=== PATIENT | male | born 1950 | race Caucasian/White ===

== ENCOUNTER 2017-03-13 06:29 | Observation (INO) | payer MEDICARE, OTHER ==
[2017-03-13] MEDS ORDERED: SODIUM CHLORIDE 0.9% 1,000 ML IV STA (08:29)
[2017-03-13] MEDS ORDERED: ONDANSETRON 4 MG/2 ML VIAL IVP STA (08:29)
--- NOTE | 2017-03-13 08:42 | ED ---
General Adult HPI - General Chief complaint: Weakness Stated complaint: Nerve pain, back ache, headache Time Seen by Provider: 03/13/17 08:14 Source: patient, RN notes reviewed Mode of arrival: ambulatory Limitations: no limitations - History of Present Illness Initial comments: Patient is a 66-year-old male who presents emergency room today with a chief complaint of having some muscle aches over the last 3 days that is felt in his neck and shoulder and back. He states he believes it is due to stress. He states he's been very stressed out at work. He states he began having a headache 3 days ago as well located on the back. He describes it as a "nauseated" type headache. States feels nauseous and does not have any specific pain. Patient denies any other symptoms. Patient denies any recent fever, chills, shortness of breath, chest pain, back pain, abdominal pain, vomiting, numbness or tingling, dysuria or hematuria, constipation or diarrhea, visual changes, or any other complaints. - Related Data Home Medications Medication Instructions Recorded Confirmed Allopurinol [Zyloprim] 300 mg PO DAILY 05/31/16 03/13/17 Aspirin EC [Ecotrin Low Dose] 324 mg PO DAILY 05/31/16 03/13/17 Losartan Potassium [Cozaar] 100 mg PO DAILY 05/31/16 03/13/17 Previous Rx's Medication Instructions Recorded Nitroglycerin Sl Tabs [Nitrostat] 0.4 mg SUBLINGUAL Q5M PRN #30 tab 06/01/16 Allergies Allergy/AdvReac Type Severity Reaction Status Date / Time No Known Allergies Allergy Verified 03/13/17 08:01 Review of Systems ROS Statement: Those systems with pertinent positive or pertinent negative responses have been documented in the HPI. ROS Other: All systems not noted in ROS Statement are negative. Past Medical History Past Medical History: Hyperlipidemia, Hypertension Additional Past Medical History / Comment(s): GOUT bilateral feet, generalized mild arthritis. History of Any Multi-Drug Resistant Organisms: None Reported Past Surgical History: Joint Replacement, Orthopedic Surgery Additional Past Surgical History / Comment(s): PT STATES A HOLE FIXED IN HIS HEART at [facility] in 2013, R inguinal hernia repair, colonoscopies, bilateral total hip arthroplasties, R knee arthroscopy, R shoulder with pin. Past Anesthesia/Blood Transfusion Reactions: No Reported Reaction Past Psychological History: Anxiety, Depression Smoking Status: Never smoker Past Alcohol Use History: Rare Past Drug Use History: None Reported - Past Family History Father Family Medical History: No Reported History Additional Family Medical History / Comment(s): Father is 91 yrs old. Mother Family Medical History: Myocardial Infarction ([place]) Additional Family Medical History / Comment(s): Mother had a [place] at the age of 91 yrs. She is 91 yrs old. General Exam - General Exam Comments Initial Comments: General: The patient is awake and alert, in no distress, and does not appear acutely ill. Eye: Pupils are equal, round and reactive to light, extra-ocular movements are intact. No nystagmus. There is normal conjunctiva bilaterally. No signs of icterus. Ears, nose, mouth and throat: There are moist mucous membranes and no oral lesions. Neck: The neck is supple, there is no tenderness or JVD. Cardiovascular: There is a regular rate and rhythm. No murmur, rub or gallop is appreciated. Respiratory: Lungs are clear to auscultation, respirations are non-labored, breath sounds are equal. No wheezes, stridor, rales, or rhonchi. Gastrointestinal: Soft, non-distended, non-tender abdomen without masses or organomegaly noted. There is no rebound or guarding present. No CVA tenderness. Bowel sounds are unremarkable. Musculoskeletal: Normal ROM, no tenderness. Strength 5/5. Sensation intact. Pulses equal bilaterally 2+. Neurological: A&O x 3. CN II-XII intact, There are no obvious motor or sensory deficits. Coordination appears grossly intact. Speech is normal. Skin: Skin is warm and dry and no rashes or lesions are noted. Psychiatric: Cooperative, appropriate mood & affect, normal judgment. Limitations: no limitations Course Vital Signs 03/13/17 03/13/17 03/13/17 06:35 09:42 10:00 Temperature 99 F Pulse Rate 58 L 54 L 59 L Respiratory 16 20 20 Rate Blood Pressure 140/86 136/88 137/104 O2 Sat by Pulse 99 99 97 Oximetry EKG Findings - EKG Comments: EKG Findings:: EKG performed at 0936: Shows sinus bradycardia at 55 beats per minute. Evidence for a left axis deviation and a right bundle-branch block. VA interval 192. QRS 110. QT/QTc is 444/424. No acute ST changes. Medical Decision Making - Medical Decision Making Patient reexamined at this time states he does feel better. Nausea improved. Still experiencing some aching to his back. He denies any injury or trauma. Denies any increased physical activity. Patient's CK elevated. 500 emergency room. Patient given a liter bolus. Will be continued on IV fluids. Given nausea medication started feel better. Case discussed with attending physician . Patient will be admitted to the hospital continued on IV fluids. - Lab Data Result diagrams: 03/13/17 08:44 03/13/17 08:44 Lab Results 03/13/17 03/13/17 03/13/17 Range/Units 08:44 08:44 08:44 WBC 5.4 (3.8-10.6) k/uL RBC 4.78 (4.30-5.90) m/uL Hgb 14.5 (13.0-17.5) gm/dL Hct 41.9 (39.0-53.0) % MCV 87.6 (80.0-100.0) fL MCH 30.3 (25.0-35.0) pg MCHC 34.5 (31.0-37.0) g/dL RDW 14.1 (11.5-15.5) % Plt Count 205 (150-450) k/uL Neutrophils % 68 % Lymphocytes % 21 % Monocytes % 6 % Eosinophils % 2 % Basophils % 1 % Neutrophils # 3.7 (1.3-7.7) k/uL Lymphocytes # 1.1 (1.0-4.8) k/uL Monocytes # 0.3 (0-1.0) k/uL Eosinophils # 0.1 (0-0.7) k/uL Basophils # 0.0 (0-0.2) k/uL PT (9.0-12.0) sec INR (<1.2) APTT (22.0-30.0) sec Sodium 141 (137-145) mmol/L Potassium 4.6 (3.5-5.1) mmol/L Chloride 109 H (98-107) mmol/L Carbon Dioxide 21 L (22-30) mmol/L Anion Gap 11 mmol/L BUN 18 (9-20) mg/dL Creatinine 1.01 (0.66-1.25) mg/dL Est GFR (MDRD) Af Amer >60 (>60 ml/min/1.73 sqM) Est GFR (MDRD) Non-Af >60 (>60 ml/min/1.73 sqM) Glucose 102 H (74-99) mg/dL Calcium 8.9 (8.4-10.2) mg/dL Total Bilirubin 0.9 (0.2-1.3) mg/dL AST 34 (17-59) U/L ALT 40 (21-72) U/L Alkaline Phosphatase 68 (38-126) U/L Total Creatine Kinase 569 H (55-170) U/L CK-MB (CK-2) 3.4 H* (0.0-2.4) ng/mL CK-MB (CK-2) Rel Index 0.6 Troponin I <0.012 (0.000-0.034) ng/mL Total Protein 7.0 (6.3-8.2) g/dL Albumin 4.0 (3.5-5.0) g/dL Urine Color Urine Appearance (Clear) Urine pH (5.0-8.0) Ur Specific Ton[place] (1.001-1.035) Urine Protein (Negative) Urine Glucose (UA) (Negative) Urine Ketones (Negative) Urine Blood (Negative) Urine Nitrite (Negative) Urine Bilirubin (Negative) Urine Urobilinogen (<2.0) mg/dL Ur Leukocyte Esterase (Negative) 03/13/17 03/13/17 Range/Units 08:44 08:44 WBC (3.8-10.6) k/uL RBC (4.30-5.90) m/uL Hgb (13.0-17.5) gm/dL Hct (39.0-53.0) % MCV (80.0-100.0) fL MCH (25.0-35.0) pg MCHC (31.0-37.0) g/dL RDW (11.5-15.5) % Plt Count (150-450) k/uL Neutrophils % % Lymphocytes % % Monocytes % % Eosinophils % % Basophils % % Neutrophils # (1.3-7.7) k/uL Lymphocytes # (1.0-4.8) k/uL Monocytes # (0-1.0) k/uL Eosinophils # (0-0.7) k/uL Basophils # (0-0.2) k/uL PT 10.5 (9.0-12.0) sec INR 1.0 (<1.2) APTT 24.8 (22.0-30.0) sec Sodium (137-145) mmol/L Potassium (3.5-5.1) mmol/L Chloride (98-107) mmol/L Carbon Dioxide (22-30) mmol/L Anion Gap mmol/L BUN (9-20) mg/dL Creatinine (0.66-1.25) mg/dL Est GFR (MDRD) Af Amer (>60 ml/min/1.73 sqM) Est GFR (MDRD) Non-Af (>60 ml/min/1.73 sqM) Glucose (74-99) mg/dL Calcium (8.4-10.2) mg/dL Total Bilirubin (0.2-1.3) mg/dL AST (17-59) U/L ALT (21-72) U/L Alkaline Phosphatase (38-126) U/L Total Creatine Kinase (55-170) U/L CK-MB (CK-2) (0.0-2.4) ng/mL CK-MB (CK-2) Rel Index Troponin I (0.000-0.034) ng/mL Total Protein (6.3-8.2) g/dL Albumin (3.5-5.0) g/dL Urine Color Yellow Urine Appearance Clear (Clear) Urine pH 5.5 (5.0-8.0) Ur Specific [place] 1.016 (1.001-1.035) Urine Protein Negative (Negative) Urine Glucose (UA) Negative (Negative) Urine Ketones Negative (Negative) Urine Blood Negative (Negative) Urine Nitrite Negative (Negative) Urine Bilirubin Negative (Negative) Urine Urobilinogen <2.0 (<2.0) mg/dL Ur Leukocyte Esterase Negative (Negative) Disposition Clinical Impression: Rhabdomyolysis Disposition: ADMITTED IP TO THIS HOSP Condition: Stable Referrals: Zuleyka Magdaleno MD [Primary Care Provider] - 1-2 days Time of Disposition: 10:33
[2017-03-13 09:11] LABS: Appearance,Urine Clear (Clear); Basophils % (A) 1 %; Bilirubin,Urine Negative (Negative); CH 30.4; CHCM 34.8; Eosinophils # (A) 0.1 k/uL (0-0.7); Eosinophils % (A) 2 %; Glucose,Urine (UA) Negative (Negative); HCT 41.9 % (39.0-53.0); HDW 2.96; HGB 14.5 gm/dL (13.0-17.5); Ketones,Urine Negative (Negative); Leukocyte Esterase,Urine Negative (Negative); Luc # (Auto) 0.14; Luc % (Auto) 3; Lymphocytes # (A) 1.1 k/uL (1.0-4.8); Lymphocytes % (A) 21 %; MCH 30.3 pg (25.0-35.0); MCHC 34.5 g/dL (31.0-37.0); MCV 87.6 fL (80.0-100.0); Mean Platelet Volume 6.7; Monocytes # (A) 0.3 k/uL (0-1.0); Monocytes % (A) 6 %; Neutrophils # (A) 3.7 k/uL (1.3-7.7); Neutrophils % (A) 68 %; Nitrite,Urine Negative (Negative); PH, Urine 5.5 (5.0-8.0); Protein,Urine Negative (Negative); RBC 4.78 m/uL (4.30-5.90); RDW 14.1 % (11.5-15.5); Specific Gravity,Urine 1.016 (1.001-1.035); UA Billing (MACRO vs. MICRO) CHEM; Urobilinogen,Urine <2.0 mg/dL (<2.0); WBC 5.4 k/uL (3.8-10.6); WBC (Perox) 5.57
[2017-03-13 09:25] LABS: ALT 40 U/L (21-72); AST 34 U/L (17-59); Alkaline Phosphatase 68 U/L (38-126); Anion Gap 11 mmol/L; Blood Urea Nitrogen 18 mg/dL (9-20); Calcium 8.9 mg/dL (8.4-10.2); Carbon Dioxide 21 mmol/L (22-30); Chloride 109 mmol/L (98-107); Glucose 102 mg/dL (74-99); Non-African American GFR(MDRD) >60 (>60 ml/min/1.73 sqM); Potassium 4.6 mmol/L (3.5-5.1); Sodium 141 mmol/L (137-145); Total Bilirubin 0.9 mg/dL (0.2-1.3)
[2017-03-13 09:30] LABS: Partial Thromboplastin Time 24.8 sec (22.0-30.0); Prothrombin Time 10.5 sec (9.0-12.0)
--- NOTE | 2017-03-13 09:40 | CT ---
EXAMINATION TYPE: CT brain wo con DATE OF EXAM: 03/13/2017 COMPARISON: Correlation MRI 08/08/2012 HISTORY: 66-year-old male Headaches TECHNIQUE: Examination was done in axial plane without intravenous contrast. Coronal and sagittal r econstructions performed. CT DLP: 1159 mGycm Automated exposure control for dose reduction was used. FINDINGS: There is no evidence of acute intracranial hemorrhage, acute ischemic changes, mass, mass-effect, or extra-axial fluid collection. There is no effacement of cerebral sulci or basal subarachnoid cister ns. There is no hydrocephalus. There is no midline shift. Berrios-white matter distinction is preserv ed. Megacisterna magna redemonstrated. Also redemonstrated is the encephalomalacia and gliosis within the left frontal lobe and a small area of cortical encephalomalacia laterally on the right near the central sulcus. These were present on 2 013. Mild patchy periventricular white matter hypodensity suggests changes of chronic small vessel ischemi c disease. Paranasal sinuses and mastoid air cells well pneumatized. Orbits and globes are intact. IMPRESSION: Old left frontal lobe infarct, similar as compared to MRI of 08/08/2012. Also, old right-sided cortical infarct near the central sulcus. No acute intracranial abnormality seen at this time.
[2017-03-13 09:41] LABS: Creatine Kinase 569 U/L (55-170)
--- NOTE | 2017-03-13 09:41 | XR ---
EXAMINATION TYPE: XR chest 2V DATE OF EXAM: 03/13/2017 COMPARISON: 05/31/2016 HISTORY: Shortness of breath TECHNIQUE: Frontal and lateral views of the chest are obtained. FINDINGS: Scattered senescent parenchymal changes noted. Hyperinflation compatible with COPD. No evidence for infiltrate. No evidence for atelectasis. Heart size is stable. Mediastinal structures are stable and grossly unremarkable. No evidence for hilar prominence. Degenerative changes dorsal spine. IMPRESSION: 1. No evidence for acute pulmonary disease.
[2017-03-13 09:52] LABS: Troponin I <0.012 ng/mL (0.000-0.034)
[2017-03-13 10:01] LABS: Creatine Kinase MB 3.4 ng/mL (0.0-2.4)
[2017-03-13] MEDS ORDERED: ACETAMINOPHEN TAB 325 MG TAB PO PRN (10:53)
[2017-03-13] MEDS ORDERED: NALOXONE 0.4 MG/ML 1 ML VIAL IV PRN (10:53)
[2017-03-13] MEDS ORDERED: ONDANSETRON 4 MG/2 ML VIAL IVP PRN (10:53)
[2017-03-13] MEDS ORDERED: HYDROmorphone 1 MG/ML 1 ML SYRINGE IV PRN (10:53)
[2017-03-13] MEDS ORDERED: HYDROcodone/APAP 5-325MG 1 EACH TAB PO PRN (10:53)
[2017-03-13] MEDS ORDERED: DIAZEPAM 5 MG TAB PO PRN (10:59)
[2017-03-13] MEDS: SODIUM CHLORIDE 0.9% 1,000 ML IV SCH ×2 (11:29→18:48)
[2017-03-13] MEDS: KETOROLAC 30 MG/ML 1 ML VIAL IVP SCH ×2 (11:29→18:50)
[2017-03-13 12:31] VITALS: RESP 18
[2017-03-13 15:33] LABS: Creatine Kinase 464 U/L (55-170)
[2017-03-13 15:46] LABS: Troponin I <0.012 ng/mL (0.000-0.034)
[2017-03-13 15:47] LABS: Creatine Kinase MB 2.5 ng/mL (0.0-2.4)
[2017-03-13] MEDS ORDERED: NITROGLYCERIN SL TABS 0.4 MG TAB SUBLINGUAL PRN (18:43)
[2017-03-13 21:08] LABS: Creatine Kinase 415 U/L (55-170)
[2017-03-13 21:22] LABS: Creatine Kinase MB 1.8 ng/mL (0.0-2.4); Troponin I <0.012 ng/mL (0.000-0.034)
[2017-03-14] MEDS: KETOROLAC 30 MG/ML 1 ML VIAL IVP SCH ×2 (00:45→06:16)
[2017-03-14 07:05] LABS: Basophils % (A) 1 %; CH 31.1; CHCM 34.6; Eosinophils # (A) 0.2 k/uL (0-0.7); Eosinophils % (A) 3 %; HCT 42.9 % (39.0-53.0); HDW 2.88; HGB 14.1 gm/dL (13.0-17.5); Luc # (Auto) 0.09; Luc % (Auto) 2; Lymphocytes % (A) 18 %; MCH 29.7 pg (25.0-35.0); MCHC 32.9 g/dL (31.0-37.0); MCV 90.2 fL (80.0-100.0); Mean Platelet Volume 7.7; Monocytes # (A) 0.3 k/uL (0-1.0); Monocytes % (A) 5 %; Neutrophils # (A) 3.9 k/uL (1.3-7.7); Neutrophils % (A) 72 %; RBC 4.75 m/uL (4.30-5.90); RDW 15.2 % (11.5-15.5); WBC 5.5 k/uL (3.8-10.6); WBC (Perox) 5.82
[2017-03-14 07:33] LABS: ALT 37 U/L (21-72); AST 33 U/L (17-59); Alkaline Phosphatase 67 U/L (38-126); Anion Gap 8 mmol/L; Blood Urea Nitrogen 17 mg/dL (9-20); Calcium 8.3 mg/dL (8.4-10.2); Carbon Dioxide 24 mmol/L (22-30); Chloride 109 mmol/L (98-107); Glucose 104 mg/dL (74-99); Non-African American GFR(MDRD) >60 (>60 ml/min/1.73 sqM); Potassium 4.8 mmol/L (3.5-5.1); Sodium 141 mmol/L (137-145); Total Bilirubin 0.8 mg/dL (0.2-1.3); Total Protein 6.6 g/dL (6.3-8.2)
[2017-03-14 07:38] VITALS: BP 153/69; PULSE 57; TEMP 98.4
[2017-03-14] MEDS: SODIUM CHLORIDE 0.9% 1,000 ML IV SCH (08:38)
[2017-03-14] MEDS ORDERED: LOSARTAN 50 MG TAB PO SCH (09:00)
[2017-03-14] MEDS ORDERED: ALLOPURINOL 300 MG TAB PO SCH (09:00)
[2017-03-14] MEDS ORDERED: ASPIRIN 325 MG TAB PO SCH (09:00)
--- NOTE | 2017-03-14 10:31 | P.HPIM ---
History of Present Illness H&P Date: 03/14/17 Chief Complaint: Muscle aches and headache This is a 66-year-old male with a known past medical history of CVA, hypertension, hyperlipidemia, gout and generalized anxiety disorder. Patient reports he came into the emergency room with complaints of muscle aches in his back shoulders and legs. Also had been having a headache and just not feeling well for the last few days. Patient reports having a lot of stress at work. 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 He also has been helping out more with some heavy lifting. Patient reports they did not feel that he overexerted himself. He denies any chest pain or shortness of breath. Denies any nausea or vomiting. Did have one episode of diarrhea this morning only. Otherwise stools have been normal. Denies any burning with urination. Denies any cough fever or chills. The muscle pains were more of an achy sensation. They have resolved as well as his headache has read up results. He had a computed tomography scan of the brain completing showing an old left frontal lobe infarct and a right cortical infarct near the central sulcus. Chest x-ray was negative and EKG shows a normal sinus rhythm with an incomplete right bundle branch block. Patient was found to have evidence of rhabdomyolysis CPK level on admission was 569. He has been given IV fluids. And his symptoms have improved. Patient reports that he would like to be restarted on his Zoloft which she had taken in the past. He feels that most of his symptoms are related to his stress and anxiety. Review of Systems Please refer to HPI otherwise unremarkable Past Medical History Past Medical History: Hyperlipidemia, Hypertension, Myocardial Infarction ([place]) Additional Past Medical History / Comment(s): GOUT bilateral feet/knees, generalized mild arthritis. Last Myocardial Infarction Date:: 05/31/16 History of Any Multi-Drug Resistant Organisms: None Reported Past Surgical History: Hernia Repair, Joint Replacement, Orthopedic Surgery Additional Past Surgical History / Comment(s): REPAIR OF HOLE IN HIS HEART at [facility] in 2012, R inguinal hernia repair, colonoscopies, bilateral total hip arthroplasties, R knee arthroscopy, R shoulder with pin. Past Anesthesia/Blood Transfusion Reactions: No Reported Reaction Smoking Status: Never smoker - Past Family History Father Family Medical History: No Reported History, Congestive Heart Failure (CHF) Additional Family Medical History / Comment(s): Father is 92 yrs old. Mother Family Medical History: Myocardial Infarction ([place]) Additional Family Medical History / Comment(s): Mother had a [place] at the age of 91 yrs. She is 92 yrs old. Medications and Allergies Home Medications Medication Instructions Recorded Confirmed Type Allopurinol [Zyloprim] 300 mg PO DAILY 05/31/16 03/13/17 History Aspirin EC [Ecotrin Low Dose] 324 mg PO DAILY 05/31/16 03/13/17 History Losartan Potassium [Cozaar] 100 mg PO DAILY 05/31/16 03/13/17 History Nitroglycerin Sl Tabs [Nitrostat] 0.4 mg SUBLINGUAL Q5M PRN #30 tab 06/01/16 Rx Allergies Allergy/AdvReac Type Severity Reaction Status Date / Time No Known Allergies Allergy Verified 03/13/17 08:01 Physical Exam Vitals: Vital Signs Temp Pulse Pulse Resp BP BP Pulse Ox 03/14/17 08:00 18 03/14/17 07:36 98.4 F 57 L 18 153/69 97 03/14/17 04:00 98.5 F 70 18 147/76 98 03/14/17 03:06 18 03/13/17 23:23 18 03/13/17 20:00 18 03/13/17 19:31 98.8 F 54 L 18 135/81 100 03/13/17 16:00 54 L 18 03/13/17 13:01 54 L 18 03/13/17 12:39 98.7 F 54 L 18 137/78 94 L 03/13/17 12:28 97 F L 62 18 139/82 97 Intake and Output 03/13/17 03/14/17 03/14/17 22:59 06:59 14:59 Intake Total 420 250 Balance 420 250 Intake: IV 0 Invasive Line 1 0 Oral 420 250 Other: Voiding Method Toilet Toilet Toilet # Voids 2 Head normocephalic Neck supple Lungs clear to auscultation bilaterally no wheezing or crackles Heart regular rate and rhythm S1-S2, no rub or gallop Abdomen is soft nontender nondistended positive bowel sounds no hepatosplenomegaly Extremities no edema Neuro alert and orientated to 3 Musculoskeletal no tenderness with palpation of the back shoulders or arms. She has full range of motion of the arms. Has been up and ambulating in the room Results CBC & Chem 7: 03/14/17 06:52 03/14/17 06:52 Labs: Abnormal Lab Results - Last 24 Hours (Table) 03/13/17 03/13/17 03/14/17 Range/Units 14:39 20:32 06:52 Chloride 109 H (98-107) mmol/L Glucose 104 H (74-99) mg/dL Calcium 8.3 L (8.4-10.2) mg/dL Creatine Kinase (55-170) U/L Total Creatine Kinase 464 H 415 H (55-170) U/L CK-MB (CK-2) 2.5 H* (0.0-2.4) ng/mL 03/14/17 Range/Units 06:52 Chloride (98-107) mmol/L Glucose (74-99) mg/dL Calcium (8.4-10.2) mg/dL Creatine Kinase 482 H (55-170) U/L Total Creatine Kinase (55-170) U/L CK-MB (CK-2) (0.0-2.4) ng/mL Thrombosis Risk Factor Assmnt - Choose All That Apply Any of the Below Risk Factors Present?: Yes Each Factor Represents 1 point: Obesity (BMI >25) Other Risk Factors: Yes Each Risk Factor Represents 2 Points: Age 61-74 years Other congenital or acquired thrombophilia - If yes, enter type in comment: No Thrombosis Risk Factor Assessment Total Risk Factor Score: 3 Thrombosis Risk Factor Assessment Level: Moderate Risk Assessment and Plan Plan: 1. Acute rhabdomyolysis likely secondary to increased physical exertion at work. CPK level 569 on admission now 482. Continue with IV fluids. Continue to monitor. 2. Hyperlipidemia: diet controlled, patient is not on any statin 3. Essential hypertension: Resume Cozaar 4. History of CVA 5. Headache now resolved possibly stress-induced. Computed tomography scan of the brain shows no acute changes. Does reveal old strokes 6. History of gout 7. History of generalized anxiety disorder. Patient reports increase in anxiety due to work. He is requesting to be restarted on Zoloft GI prophylaxis Pepcid and DVT prophylaxis subcu heparin Time with Patient: Greater than 30 (Greater than 50% of the total time spent in counseling and coordination of care.I performed an examination of the patient and discussed their management with the physician Chief Solution Architect. I have reviewed the Physician Chief Solution Architect's notes and agree with the documented findings and plan of care)
--- NOTE | 2017-03-14 11:57 | P.DS ---
Providers Date of admission: 03/13/17 10:47 Expected date of discharge: 03/14/17 Attending physician: Zuleyka Magdaleno Primary care physician: Zuleyka Magdaleno [facility] Course: Discharge diagnosis 1. Acute rhabdomyolysis likely secondary to increased physical exertion at work. CPK level 569 on admission now 482. Continue with IV fluids. Continue to monitor. 2. Hyperlipidemia: diet controlled, patient is not on any statin 3. Essential hypertension: Resume Cozaar 4. History of CVA 5. Headache now resolved possibly stress-induced. Computed tomography scan of the brain shows no acute changes. Does reveal old strokes 6. History of gout 7. History of generalized anxiety disorder. Patient reports increase in anxiety due to work. He is requesting to be restarted on Zoloft Hospital course This is a 66-year-old male with a known past medical history of CVA, hypertension, hyperlipidemia, gout and generalized anxiety disorder. Patient reports he came into the emergency room with complaints of muscle aches in his back shoulders and legs. Also had been having a headache and just not feeling well for the last few days. Patient reports having a lot of stress at work. 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 He also has been helping out more with some heavy lifting. Patient reports they did not feel that he overexerted himself. He denies any chest pain or shortness of breath. Denies any nausea or vomiting. Did have one episode of diarrhea this morning only. Otherwise stools have been normal. Denies any burning with urination. Denies any cough fever or chills. The muscle pains were more of an achy sensation. They have resolved as well as his headache has read up results. He had a computed tomography scan of the brain completing showing an old left frontal lobe infarct and a right cortical infarct near the central sulcus. Chest x-ray was negative and EKG shows a normal sinus rhythm with an incomplete right bundle branch block. Patient was found to have evidence of rhabdomyolysis CPK level on admission was 569. He has been given IV fluids. And his symptoms have improved. Patient reports that he would like to be restarted on his Zoloft which she had taken in the past. He feels that most of his symptoms are related to his stress and anxiety. Patient had evidence of an acute rhabdomyolysis possibly related to the increase work activity. However patient reports that it was not that strenuous. CPK level on discharge is 482. Will have patient follow up with Dr. Magdaleno in 1 week. Also will restart patient on his Zoloft at 50 mg daily for his anxiety disorder. Patient may need to be seen by a bandsaw operator outpatient setting due to the elevated CPK levels. I performed an examination of the patient and discussed their management with the physician Fur Stylist. I have reviewed the Physician Fur Stylist's notes and agree with the documented findings and plan of care Patient Condition at Discharge: Stable Plan - Discharge Summary New Discharge Prescriptions: New Sertraline [Zoloft] 50 mg PO DAILY #30 tab Continue Losartan Potassium [Cozaar] 100 mg PO DAILY Aspirin EC [Ecotrin Low Dose] 324 mg PO DAILY Allopurinol [Zyloprim] 300 mg PO DAILY Nitroglycerin Sl Tabs [Nitrostat] 0.4 mg SUBLINGUAL Q5M PRN #30 tab PRN Reason: Chest Pain Discharge Medication List Allopurinol [Zyloprim] 300 mg PO DAILY 05/31/16 [History] Aspirin EC [Ecotrin Low Dose] 324 mg PO DAILY 05/31/16 [History] Losartan Potassium [Cozaar] 100 mg PO DAILY 05/31/16 [History] Nitroglycerin Sl Tabs [Nitrostat] 0.4 mg SUBLINGUAL Q5M PRN #30 tab 06/01/16 [Rx ] Sertraline [Zoloft] 50 mg PO DAILY #30 tab 03/14/17 [Rx] Follow up Appointment(s)/Referral(s): Zuleyka Magdaleno MD [Primary Care Provider] - 1 Week Activity/Diet/Wound Care/Special Instructions: Diet: low cholesterol Activity: as tolerated Discharge Disposition: HOME SELF-CARE
[2017-03-14] MEDS ORDERED: HEPARIN SODIUM,PORCINE 5,000 UNIT/ML 1 ML VIAL SQ SCH (21:00)
[2017-03-15] MEDS ORDERED: FAMOTIDINE 20 MG TAB PO SCH (09:00)
== END 2017-03-14 12:38 | disposition home or self-care (01) ==
LOC: EC 06:29 → 3OBS 10:47
PROVIDERS: ADMIT Internal Medicine; ATTEND Internal Medicine
DX: M62.82 Rhabdomyolysis (principal); E78.5 Hyperlipidemia, unspecified; I10 Essential (primary) hypertension; F41.1 Generalized anxiety disorder; Z86.73 Personal history of transient ischemic attack (TIA), and cerebral infarction without residual deficits; M10.9 Gout, unspecified; R51 Headache; R19.7 Diarrhea, unspecified; R74.8 Abnormal levels of other serum enzymes; Z79.82 Long term (current) use of aspirin; Z79.899 Other long term (current) drug therapy; M19.90 Unspecified osteoarthritis, unspecified site; Z82.49 Family history of ischemic heart disease and other diseases of the circulatory system; E66.9 Obesity, unspecified; Z68.31 Body mass index [BMI] 31.0-31.9, adult
CPT/HCPCS: 99285; 96374; 96361 ×2; 96375 ×2; 96376; 36415; 93005; 80053 ×2; 82550 ×2; 82553 ×2; 84484; 85025 ×2; 85610; 85730; 81003; 71020; 70450; G0378 ×2; J2405; J1885

== ENCOUNTER 2017-05-17 10:38 | Day surgery (SDC) | payer MEDICARE, OTHER ==
[2017-05-16 08:47] VITALS: BMI 30.2
[~2017-05-17 10:38] MED LIST: ALPRAZolam 0.25 MG TAB PO PRN; ALPRAZolam 0.5 MG TAB PO PRN; ASPIRIN 325 MG TAB PO STA; ATORVASTATIN 80 MG TAB PO STA; NITROGLYCERIN SL TABS 0.4 MG TAB SUBLINGUAL PRN; SODIUM CHLORIDE 0.9% 1,000 ML in EMPTY BAG 1 BAG IV ONE
[2017-05-17 11:15] LABS: Basophils # (A) 0.1 k/uL (0-0.2); Basophils % (A) 1 %; CH 30.8; CHCM 35.2; Eosinophils # (A) 0.3 k/uL (0-0.7); Eosinophils % (A) 7 %; HCT 40.9 % (39.0-53.0); HDW 3.22; HGB 14.1 gm/dL (13.0-17.5); Luc # (Auto) 0.16; Luc % (Auto) 4; Lymphocytes # (A) 1.2 k/uL (1.0-4.8); Lymphocytes % (A) 26 %; MCH 30.2 pg (25.0-35.0); MCHC 34.4 g/dL (31.0-37.0); MCV 87.8 fL (80.0-100.0); Mean Platelet Volume 6.6; Monocytes # (A) 0.3 k/uL (0-1.0); Monocytes % (A) 6 %; Neutrophils # (A) 2.7 k/uL (1.3-7.7); Neutrophils % (A) 56 %; RBC 4.66 m/uL (4.30-5.90); RDW 14.3 % (11.5-15.5); WBC 4.7 k/uL (3.8-10.6); WBC (Perox) 4.52
[2017-05-17 11:27] LABS: Anion Gap 10 mmol/L; Blood Urea Nitrogen 16 mg/dL (9-20); Carbon Dioxide 23 mmol/L (22-30); Chloride 107 mmol/L (98-107); Glucose 97 mg/dL (74-99); Non-African American GFR(MDRD) >60 (>60 ml/min/1.73 sqM); Potassium 4.5 mmol/L (3.5-5.1); Sodium 140 mmol/L (137-145)
[2017-05-17] MEDS ORDERED: LIDOCAINE 2% INJ 20 MG/ML (20 ML MDV) ONE (12:18)
[2017-05-17] MEDS ORDERED: MIDAZOLAM 2 MG/2 ML VIAL ONE ×2 (12:18→13:04)
[2017-05-17] MEDS ORDERED: HEPARIN SODIUM 1,000 UN/ML (10ML VL) ONE (12:18)
[2017-05-17] MEDS ORDERED: VERAPAMIL 2.5 MG/ML 2 ML AMP ONE (12:18)
[2017-05-17] MEDS ORDERED: MIDAZOLAM 2 MG/2 ML VIAL IVP ONE (12:41)
[2017-05-17] MEDS ORDERED: LIDOCAINE 2% INJ 20 MG/ML SQ ONE (12:43)
[2017-05-17] MEDS: VERAPAMIL SYRINGE (5 MG/10 ML) INTRAARTER ONE ×2 (12:44→13:35)
[2017-05-17] MEDS ORDERED: HEPARIN SODIUM 1,000 UN/ML (10ML VL) IV ONE (12:45)
[2017-05-17] MEDS ORDERED: MIDAZOLAM 2 MG/2 ML VIAL IV ONE (13:06)
[2017-05-17] MEDS ORDERED: BIVALIRUDIN BOLUS 250 MG/50 ML IV ONE (13:08)
[2017-05-17] MEDS ORDERED: BIVALIRUDIN 250 MG in SODIUM CHLORIDE 0.9% 40 ML IV ONE (13:08)
[2017-05-17] MEDS ORDERED: NITROGLYCERIN 1000MCG/10ML SYRINGE INTRACORON ONE (13:31)
[2017-05-17] MEDS ORDERED: PRASUGREL 10 MG TAB ONE (13:33)
[2017-05-17] MEDS ORDERED: IOHEXOL 350 MG/ML 125ML BOTTLE INJ ONE (13:37)
[2017-05-17] MEDS ORDERED: PRASUGREL 10 MG TAB PO ONE (13:37)
[2017-05-17] MEDS ORDERED: NITROGLYCERIN SL TABS 0.4 MG TAB SUBLINGUAL PRN ×2 (13:42→13:43)
[2017-05-17] MEDS ORDERED: ATROPINE SULFATE 0.1 MG/ML 10ML SYRINGE IV PRN (13:43)
[2017-05-17] MEDS ORDERED: RX INFO: IV CONTRAST WAS GIVEN 1 EACH MISC MISCELLANE PRN (13:43)
[2017-05-17] MEDS ORDERED: MAG HYDROX/AL HYDROX/SIMETH 30 ML CUP PO PRN (13:43)
[2017-05-17] MEDS ORDERED: ZOLPIDEM 5 MG TAB PO PRN (13:43)
[2017-05-17] MEDS ORDERED: SODIUM CHLORIDE 0.9% 1,000 ML IV SCH (13:45)
[2017-05-17] MEDS ORDERED: INFLUENZA VACCINE (6 MOS+) 60 MCG/0.5 ML SYRINGE IM ONE (14:34)
--- NOTE | 2017-05-17 14:47 | LTR ---
May 17, [address] Bowling: Mr. Michael Crowe was experiencing intermittent episodes of chest discomfort quite concerning for angina. He underwent a heart catheterization and was found to have severe disease involving the mid LAD where he underwent successful stenting of the LAD with good angiographic results and without any complication. I want to thank you for allowing me to participate in his care and please do not hesitate to call if you have any question or concern. MMODL / IJN: [id number] /
--- NOTE | 2017-05-17 14:59 | CC ---
CARDIAC CATHETERIZATION REPORT DATE OF SERVICE: May 17, 2017. Please see this based. PERFORMING PHYSICIAN: Fred Whitten MD, soaker. PROCEDURE PERFORMED: 1. Selective right and left coronary angiogram. 2. Successful stenting of the mid LAD using 2.75 x 12 mm Promus Premier drug-eluting stent with good angiographic results. INDICATION: This is a pleasant 66-year-old gentleman who was experiencing intermittent episodes of chest discomfort quite concerning for angina. He was brought today to undergo a heart catheterization. APPROACH: Right radial artery. COMPLICATION: None. LEVEL OF SEDATION: Moderate with sedation length of 58 minutes. PROCEDURE DESCRIPTION: After obtaining informed consent, the patient was brought to cardiac cardiac cath lab manager. The right radial artery was cannulated using micropuncture technique and a micropuncture wire passed easily then I placed a 6-Kenyan sheath in the right radial artery. Subsequently I did selective right and left coronary angiogram using JR4 and JL3.5 catheters. After that, I did decide to intervene on the RCA. Please see a separate paragraph for that. SELECTIVE CORONARY ANGIOGRAM: 1. The right coronary artery is a large caliber vessel and it is a dominant vessel. RCA appeared to have mild disease only. It bifurcates distally into PDA and PLV branches. Both are angiographically normal. The RCA in the midportion gives rise into acute marginal branch. 2. The left main is angiographically normal. It bifurcates into the left circumflex and left anterior descending artery. 3. The left circumflex is a large caliber vessel and it is a nondominant vessel. The proximal circ is angiographically normal. It gives rise into a small acute marginal branch. The mid left circumflex is normal. The left circumflex distally is angiographically normal as well. 4. The left anterior descending artery: The proximal LAD is extremely tortuous and making a loop of about 360 degrees. It has mild disease only. The mid LAD by the bifurcation of a large diagonal branch appeared to have a tight lesion in the range of 70% was most seen on the STEELE caudal view. The LAD distally appeared to be tortuous, but angiographically normal. PCI: PCI of the LAD anticoagulation was initiated using Angiomax. Subsequently I took a 3.5 guide in the left main was engaged. I did wire the LAD using 2 whisper wires. Subsequently I did PTCA ballooning using two 5 x 12 mm balloon and subsequently I deployed a 275 x 15 x 12 mm Promus Premier drug-eluting stent where the stent was positioned under fluoroscopy guidance and deployed under 16 atmospheres for 20 seconds. The following angiogram showed good angiographic results with a residual stenosis of about 10-20%. The procedure was completed without any complication. CONCLUSION: 1. Severe disease involving the mid LAD by the bifurcation of a large diagonal branch. 2. Successful stenting of the mid LAD using 2.75 x 12 mm Promus Premier drug-eluting stent with good angiographic results. POSTPROCEDURE MANAGEMENT: 1. Dual anti-platelet therapy. 2. Risk factor modifications. 3. Follow up with the patient. MMODL / IJN: [id number] /
[2017-05-17] MEDS ORDERED: LOSARTAN 50 MG TAB PO SCH (21:00)
[2017-05-17] MEDS ORDERED: ALLOPURINOL 300 MG TAB PO SCH (21:00)
[2017-05-18 06:30] LABS: Basophils % (A) 1 %; CH 30.4; CHCM 34.6; Eosinophils # (A) 0.3 k/uL (0-0.7); Eosinophils % (A) 6 %; HDW 3.18; HGB 13.4 gm/dL (13.0-17.5); Luc # (Auto) 0.13; Luc % (Auto) 2; Lymphocytes # (A) 1.2 k/uL (1.0-4.8); Lymphocytes % (A) 24 %; MCH 29.5 pg (25.0-35.0); MCHC 33.4 g/dL (31.0-37.0); MCV 88.4 fL (80.0-100.0); Mean Platelet Volume 6.6; Monocytes # (A) 0.4 k/uL (0-1.0); Monocytes % (A) 8 %; Neutrophils # (A) 3.1 k/uL (1.3-7.7); Neutrophils % (A) 60 %; RBC 4.53 m/uL (4.30-5.90); RDW 14.1 % (11.5-15.5); WBC 5.1 k/uL (3.8-10.6); WBC (Perox) 5.14
[2017-05-18 07:37] LABS: Anion Gap 7 mmol/L; Blood Urea Nitrogen 18 mg/dL (9-20); Calcium 8.6 mg/dL (8.4-10.2); Carbon Dioxide 25 mmol/L (22-30); Chloride 104 mmol/L (98-107); Glucose 95 mg/dL (74-99); Non-African American GFR(MDRD) >60 (>60 ml/min/1.73 sqM); Potassium 4.3 mmol/L (3.5-5.1); Sodium 136 mmol/L (137-145)
[2017-05-18] MEDS ORDERED: ANTIDEPRESSANT PO SCH (09:00)
[2017-05-18] MEDS ORDERED: ASPIRIN 81 MG PO SCH (09:00)
[2017-05-18] MEDS ORDERED: FAMOTIDINE 20 MG TAB PO SCH (09:00)
[2017-05-18] MEDS ORDERED: PNEUMOCOCCAL VACC-PNEUMOVAX 23 25 MCG/0.5 ML VIAL IM ONE (09:00)
--- NOTE | 2017-05-18 09:45 | DS ---
DISCHARGE SUMMARY DATE OF ADMISSION: 05/17/2017 DISCHARGE DATE: May 18, 2017 BRIEF HISTORY: This is a pleasant 66-year-old gentleman who was experiencing intermittent episodes of chest discomfort concerning for angina. He underwent a heart catheterization and was found to have severe disease involving the mid LAD. He underwent successful stenting of the LAD with good angiographic results and without any complication. On follow up with him today, he is doing good and he is asymptomatic. He is going to be discharged home on dual anti-platelet therapy along with statin and I will follow up with him in the office in a week. JANETTE / POPPY: [id number] /
[2017-05-18] MEDS ORDERED: PRASUGREL 10 MG TAB PO SCH (12:00)
[2017-05-18 12:28] VITALS: BP 130/85; PULSE 61; RESP 16; TEMP 97.2
== END 2017-05-18 13:06 | disposition home or self-care (01) ==
LOC: CATHCVL 10:38 → 6SEL 13:39 → CATHCVL 05-18 13:06
PROVIDERS: ATTEND Internal Medicine Interventional Cardiology
DX: I25.110 Atherosclerotic heart disease of native coronary artery with unstable angina pectoris (principal); I45.10 Unspecified right bundle-branch block; E78.00 Pure hypercholesterolemia, unspecified; I10 Essential (primary) hypertension; Z86.79 Personal history of other diseases of the circulatory system; Z79.82 Long term (current) use of aspirin; Z79.899 Other long term (current) drug therapy
CPT/HCPCS: 93454; 85347; 80048 ×2; 85025 ×2; 90732; 90686; C9600; C1769 ×2; C1887; C1725; C1894; C1874; G0008; G0009; J2001; J2250; J1644; J0583; Q9967

== ENCOUNTER 2019-05-08 10:24 | Day surgery (SDC) | payer MEDICARE, OTHER ==
[2019-05-07 10:15] VITALS: BMI 29.5
[2019-05-08 10:53] VITALS: TEMP 97.6
[2019-05-08] MEDS ORDERED: MIDAZOLAM 2 MG/2 ML VIAL IVP ONE (11:12)
[2019-05-08] MEDS ORDERED: LIDOCAINE 1% INJ 10MG/ML (20 ML MDV) SQ ONE (11:15)
[2019-05-08] MEDS: VERAPAMIL SYRINGE (5 MG/10 ML) INTRAARTER ONE ×2 (11:17→11:24)
[2019-05-08] MEDS ORDERED: HEPARIN SODIUM 1,000 UN/ML (10ML VL) IV ONE (11:19)
[2019-05-08 11:29] LABS: Calcium 8.8 mg/dL (8.4-10.2)
[2019-05-08] MEDS ORDERED: RX INFO: IV CONTRAST WAS GIVEN 1 EACH MISC MISCELLANE PRN (11:30)
[2019-05-08] MEDS ORDERED: SODIUM CHLORIDE 0.9% 1,000 ML IV SCH (11:30)
[2019-05-08] MEDS ORDERED: IOPAMIDOL-370 125ML BTL INJ ONE (11:32)
[2019-05-08 11:35] LABS: Potassium 5.7 mmol/L (3.5-5.1)
--- NOTE | 2019-05-08 11:35 | P.PCN ---
Date of Procedure: 05/08/19 Operative Findings: CARDIAC CATHETERIZATION PERFORMING PHYSICIAN: Fred Whitten MD, RPVI PROCEDURE PERFORMED: 1. Selective right and left coronary angiogram 2. Left heart catheterization INDICATION: This is a pleasant 68-year-old gentleman with history of coronary artery disease and prior stenting of the LAD in 2017 as well as hypertension and dyslipidemia continues not feeling well. He was experiencing intermittent episodes of discomfort in the chest concerning for severe coronary artery disease. Because of the continuous symptoms a heart catheterization was advised. COMPLICATION: None APPROACH: Right radial artery LEVEL OF SEDATION: Moderate with sedation duration of 14 minutes PROCEDURE DESCRIPTION: After obtaining an informed consent, the patient was brought to cardiac carpenter/labor. Local anesthesia was performed using lidocaine subcutaneously. The right radial artery was cannulated using Seldinger technique, the guidewire passed easily, following that we advanced a 5-Greenlandic sheath dilator assembly, the wire and dilator were removed and sheath was flushed. Following that, 2 mg of verapamil along with [id number] unit heparin were given. Selective right and left coronary angiogram using a 6-Greenlandic JR4 and JL 3.5 catheters. Following that we did left heart catheterization using 6-Greenlandic pigtail catheter. The procedure was completed there was no complication. SELECTIVE CORONARY ANGIOGRAM: The right coronary artery: Is a large caliber vessel. Its aneurysmal. It does have mild occlusive disease only. Left main: Is a long left main with mild disease only. The left circumflex: Large caliber vessel and nondominant vessel. It is tortuous. Appeared to have mild disease only. The left anterior descending artery: Is extremely tortuous in the proximal portion was mild disease only. In the midportion by the bifurcation of a large diagonal branch is a stented with mild disease only. Distally appears to be angiographically normal. HEMODYNAMICS: The LVEDP was 12 mmHg without significant gradient across aortic valve CONCLUSION: 1. Aneurysmal right coronary system 2. Tortuous left coronary system 3. Patent stent in the mid LAD POSTPROCEDURE MANAGEMENT: Medical treatment Follow-up with the patient
[2019-05-08 14:10] VITALS: BP 125/71; PULSE 48; RESP 16
== END 2019-05-08 16:10 | disposition home or self-care (01) ==
LOC: CATHCVL 10:24
PROVIDERS: ATTEND Internal Medicine Interventional Cardiology
DX: I25.110 Atherosclerotic heart disease of native coronary artery with unstable angina pectoris (principal); I25.41 Coronary artery aneurysm; I77.1 Stricture of artery; I10 Essential (primary) hypertension; E78.5 Hyperlipidemia, unspecified; Q21.1 Atrial septal defect; Z95.5 Presence of coronary angioplasty implant and graft; Z79.82 Long term (current) use of aspirin; Z79.899 Other long term (current) drug therapy
CPT/HCPCS: 93458; 80048; C1769; C1894; J2250; J2001; J1644; Q9967

== ENCOUNTER 2020-01-22 12:58 | Observation (INO) | payer MEDICARE, OTHER ==
[2020-01-22] MEDS ORDERED: ASPIRIN 81 MG PO STA (13:56)
[2020-01-22] MEDS ORDERED: NITROGLYCERIN OINT 1 INCH/GM PACKET TOPICAL STA (13:56)
--- NOTE | 2020-01-22 13:58 | ED ---
General Adult HPI - General Chief complaint: Chest Pain Stated complaint: chest pain Time Seen by Provider: 01/22/20 13:15 Source: patient, RN notes reviewed Mode of arrival: wheelchair Limitations: no limitations - History of Present Illness Initial comments: Patient is a pleasant 69-year-old male presenting to the emergency Department with complaint of chest discomfort. Onset of symptoms was yesterday. Patient states around for 5:00 he had chest discomfort lasting for a couple of hours. Discomfort has resolved. Patient has no chest discomfort at this time. Patient does not feel that well today. Patient feels fatigued and achy. Patient did have nausea and did vomit this morning. No cough or dyspnea. No diaphoresis. - Related Data Home Medications Medication Instructions Recorded Confirmed Aspirin EC [Ecotrin Low Dose] 162 mg PO DAILY 05/31/16 01/22/20 Losartan Potassium [Cozaar] 100 mg PO DAILY 05/31/16 01/22/20 allopurinoL [Zyloprim] 300 mg PO DAILY 05/31/16 01/22/20 Famotidine 40 mg PO DAILY 05/17/17 01/22/20 Escitalopram [Lexapro] 10 mg PO DAILY 01/22/20 01/22/20 Multivitamins, Thera [Multivitamin 1 tab PO DAILY 01/22/20 01/22/20 (formulary)] Previous Rx's Medication Instructions Recorded Nitroglycerin Sl Tabs [Nitrostat] 0.4 mg SUBLINGUAL Q5M PRN #30 tab 06/01/16 Atorvastatin Calcium [Lipitor] 80 mg PO DAILY #90 tablet 05/18/17 Allergies Allergy/AdvReac Type Severity Reaction Status Date / Time No Known Allergies Allergy Verified 01/22/20 14:51 Review of Systems ROS Statement: Those systems with pertinent positive or pertinent negative responses have been documented in the HPI. ROS Other: All systems not noted in ROS Statement are negative. Constitutional: Denies: fever Eyes: Denies: eye pain ENT: Denies: ear pain Respiratory: Denies: cough, dyspnea Cardiovascular: Reports: chest pain Endocrine: Reports: fatigue Gastrointestinal: Reports: nausea, vomiting. Denies: abdominal pain Genitourinary: Denies: dysuria Musculoskeletal: Denies: back pain Skin: Denies: rash Neurological: Denies: weakness Past Medical History Past Medical History: Hyperlipidemia, Hypertension, Myocardial Infarction (MT) Additional Past Medical History / Comment(s): GOUT bilateral feet/knees, gener alized mild arthritis. Last Myocardial Infarction Date:: 05/31/16 History of Any Multi-Drug Resistant Organisms: None Reported Past Surgical History: Heart Catheterization With Stent, Hernia Repair, Joint Replacement, Orthopedic Surgery Additional Past Surgical History / Comment(s): REPAIR OF HOLE IN HIS HEART at [facility] in 2012, R inguinal hernia repair, colonoscopies, bilateral total hip arthroplasties, R knee arthroscopy, R shoulder with pin. Past Anesthesia/Blood Transfusion Reactions: No Reported Reaction Date of Last Stent Placement:: 2016 Past Psychological History: Anxiety, Depression Smoking Status: Never smoker Past Alcohol Use History: Rare Past Drug Use History: None Reported - Past Family History Father Family Medical History: Congestive Heart Failure (CHF) Additional Family Medical History / Comment(s): Father is 94 yrs old. Mother Family Medical History: Myocardial Infarction (MT) Additional Family Medical History / Comment(s): Mother had a MT at the age of 91 yrs. She is 94 yrs old. General Exam Limitations: no limitations General appearance: alert, in no apparent distress Head exam: Present: atraumatic Eye exam: Present: normal appearance Neck exam: Present: normal inspection Respiratory exam: Present: normal lung sounds bilaterally. Absent: chest wall tenderness Cardiovascular Exam: Present: regular rate, normal rhythm, normal heart sounds Expanded Peripheral pulses: 2+: Radial (R), Radial (L), Posterior Tibialis (R), Posterior Tibialis (L) GI/Abdominal exam: Present: soft. Absent: tenderness Extremities exam: Present: normal inspection. Absent: pedal edema, calf tenderness Neurological exam: Present: alert Psychiatric exam: Present: normal affect, normal mood Skin exam: Present: normal color Course Vital Signs 01/22/20 01/22/20 13:06 14:06 Temperature 98.4 F Pulse Rate 65 84 Respiratory 16 20 Rate Blood Pressure 150/97 170/112 O2 Sat by Pulse 96 96 Oximetry EKG Findings - EKG Comments: EKG Findings:: Normal sinus rhythm 81. AR 178. QRS 118. QT 388. QTC 450. Left axis. Incomplete right bundle-branch block. Left anterior fascicular block. Medical Decision Making - Medical Decision Making Patient reevaluated and resting comfortably in bed. Patient updated on results and plan. Patient also updated on need for computed tomography scan and is in agreement. Case also discussed in detail with Dr. Stoll, covering for Dr. Palomo, who admits covering for Dr. Rodriguez. She is agreeable with admission and aware of pending CT. - Lab Data Result diagrams: 01/22/20 14:01 01/22/20 14:01 Lab Results 01/22/20 01/22/20 01/22/20 Range/Units 14:01 14:01 14:01 WBC 5.0 (3.8-10.6) k/uL RBC 4.80 (4.30-5.90) m/uL Hgb 14.3 (13.0-17.5) gm/dL Hct 43.2 (39.0-53.0) % MCV 90.0 (80.0-100.0) fL MCH 29.8 (25.0-35.0) pg MCHC 33.1 (31.0-37.0) g/dL RDW 13.9 (11.5-15.5) % Plt Count 184 (150-450) k/uL Neutrophils % 69 % Lymphocytes % 21 % Monocytes % 6 % Eosinophils % 2 % Basophils % 1 % Neutrophils # 3.4 (1.3-7.7) k/uL Lymphocytes # 1.0 (1.0-4.8) k/uL Monocytes # 0.3 (0-1.0) k/uL Eosinophils # 0.1 (0-0.7) k/uL Basophils # 0.0 (0-0.2) k/uL PT 10.0 (9.0-12.0) sec INR 1.0 (<1.2) APTT 24.6 (22.0-30.0) sec D-Dimer 0.61 H (<0.60) mg/L FEU Sodium 140 (137-145) mmol/L Potassium 4.3 (3.5-5.1) mmol/L Chloride 107 (98-107) mmol/L Carbon Dioxide 25 (22-30) mmol/L Anion Gap 8 mmol/L BUN 13 (9-20) mg/dL Creatinine 1.05 (0.66-1.25) mg/dL Est GFR (CKD-EPI)AfAm 84 (>60 ml/min/1.73 sqM) Est GFR (CKD-EPI)NonAf 73 (>60 ml/min/1.73 sqM) Glucose 109 H (74-99) mg/dL Calcium 9.0 (8.4-10.2) mg/dL Magnesium 2.0 (1.6-2.3) mg/dL Total Bilirubin 0.9 (0.2-1.3) mg/dL AST 32 (17-59) U/L ALT 24 (4-49) U/L Alkaline Phosphatase 70 (38-126) U/L Troponin I (0.000-0.034) ng/mL Total Protein 6.9 (6.3-8.2) g/dL Albumin 4.0 (3.5-5.0) g/dL 01/22/20 Range/Units 14:01 WBC (3.8-10.6) k/uL RBC (4.30-5.90) m/uL Hgb (13.0-17.5) gm/dL Hct (39.0-53.0) % MCV (80.0-100.0) fL MCH (25.0-35.0) pg MCHC (31.0-37.0) g/dL RDW (11.5-15.5) % Plt Count (150-450) k/uL Neutrophils % % Lymphocytes % % Monocytes % % Eosinophils % % Basophils % % Neutrophils # (1.3-7.7) k/uL Lymphocytes # (1.0-4.8) k/uL Monocytes # (0-1.0) k/uL Eosinophils # (0-0.7) k/uL Basophils # (0-0.2) k/uL PT (9.0-12.0) sec INR (<1.2) APTT (22.0-30.0) sec D-Dimer (<0.60) mg/L FEU Sodium (137-145) mmol/L Potassium (3.5-5.1) mmol/L Chloride (98-107) mmol/L Carbon Dioxide (22-30) mmol/L Anion Gap mmol/L BUN (9-20) mg/dL Creatinine (0.66-1.25) mg/dL Est GFR (CKD-EPI)AfAm (>60 ml/min/1.73 sqM) Est GFR (CKD-EPI)NonAf (>60 ml/min/1.73 sqM) Glucose (74-99) mg/dL Calcium (8.4-10.2) mg/dL Magnesium (1.6-2.3) mg/dL Total Bilirubin (0.2-1.3) mg/dL AST (17-59) U/L ALT (4-49) U/L Alkaline Phosphatase (38-126) U/L Troponin I <0.012 (0.000-0.034) ng/mL Total Protein (6.3-8.2) g/dL Albumin (3.5-5.0) g/dL - Radiology Data Radiology results: image reviewed (Chest x-ray shows Full closure device. Ectasia/tortuous the of the thoracic aorta is slightly increased.) Disposition Clinical Impression: Chest pain Disposition: ADMITTED IP TO THIS HOSP Is patient prescribed a controlled substance at d/c from ED?: No Referrals: Nigel Rodriguez MD [Primary Care Provider] - 1-2 days Decision Time: 15:32
[2020-01-22 14:13] LABS: Basophils % (A) 1 %; Eosinophils # (A) 0.1 k/uL (0-0.7); Eosinophils % (A) 2 %; HCT 43.2 % (39.0-53.0); HGB 14.3 gm/dL (13.0-17.5); Lymphocytes % (A) 21 %; MCH 29.8 pg (25.0-35.0); MCHC 33.1 g/dL (31.0-37.0); Mean Platelet Volume 7.3; Monocytes # (A) 0.3 k/uL (0-1.0); Monocytes % (A) 6 %; Neutrophils # (A) 3.4 k/uL (1.3-7.7); Neutrophils % (A) 69 %; Platelet Count 184 k/uL (150-450); RDW 13.9 % (11.5-15.5)
[2020-01-22 14:21] LABS: Potassium 4.3 mmol/L (3.5-5.1); Total Bilirubin 0.9 mg/dL (0.2-1.3); Total Protein 6.9 g/dL (6.3-8.2)
[2020-01-22 14:27] LABS: Partial Thromboplastin Time 24.6 sec (22.0-30.0)
[2020-01-22 14:30] LABS: D-Dimer 0.61 mg/L FEU (<0.60)
--- NOTE | 2020-01-22 15:04 | XR ---
EXAMINATION TYPE: XR chest 2V DATE OF EXAM: 01/22/2020 COMPARISON: 03/13/2017 HISTORY: 69-year-old male with chest pain TECHNIQUE: AP and lateral views FINDINGS: Heart limits of normal in size. Tortuosity/ectasia of the thoracic aorta may be slightly increased. N o consolidation or effusion. PFO closure device. IMPRESSION: PFO closure device incidentally noted. Ectasia/tortuosity of the thoracic aorta is slightly increased from 2017. No acute cardiopulmonary process.
[2020-01-22] MEDS ORDERED: NITROGLYCERIN SL TABS 0.4 MG TAB SUBLINGUAL PRN (15:37)
--- NOTE | 2020-01-22 16:56 | CT ---
EXAMINATION TYPE: CT angio chest DATE OF EXAM: 01/22/2020 COMPARISON: 05/31/2016 HISTORY: chest pain, headache CT DLP: 635 mGycm Automated exposure control for dose reduction was used. CONTRAST: Performed with IV Contrast, patient injected with 100 mL of Isovue 370. Images were obtained from the thoracic inlet to the diaphragm with IV contrast and 3-D post processed images. FINDINGS: There is some patchy atelectasis at the posterior lung bases. There is no pleural effusion. There is no pericardial effusion. Heart is top normal in size. I see no filling defects in the pulmonary arteries. There are no hilar masses. Thoracic aorta shows m ild atheromatous change. 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 There is no dissection. Upp er abdominal soft tissues appear intact. There are cortical cysts in the left kidney. There is mild r enal cortical atrophy. There is some spurring in the thoracic spine. I see no bony destructive proces s. IMPRESSION: No evidence of pulmonary embolism. Mild interstitial density and subsegmental atelectasis in the post erior lung hernandez. Mild aneurysm of the ascending aorta. No significant change compared to old exam..
--- NOTE | 2020-01-22 17:18 | P.HPIM ---
History of Present Illness H&P Date: 01/22/20 Chief Complaint: chest pain Patient is a 69-year-old male with a past medical history of coronary artery disease status post stent (05/2017), hypertension, hyperlipidemia who presented to the ED with chest pain. Patient states that yesterday when he was driving back home from [facility] he felt left-sided chest pain that was nonradiating and sharp. Patient reports that it lasted for a couple hours and then went away. Patient states that this morning he felt nauseous and also vomited. Patient also reports feeling "achy" all over with muscle soreness. P atient denies fever, chills, diarrhea, loss of taste or smell, sore throat. Patient went camping with his family in [facility]. He is not aware of being exposed to anyone with COVID 19. Patient reports that when he had his last MT he had presented with vague symptoms and the symptoms he is currently presenting with are somewhat similar to when he had his MT. Currently in the ED patient is denying any chest pain. His EKG shows no ST changes. Patient's first set of troponin is negative. Patient's d-dimer is normal for his age. Patient's chest x-ray showed ectasia/tortuosity of the thoracic aorta which is slightly increased from 2017. However CTA chest showed no significant changes from previous computed tomography scan and was negative for pulmonary embolism. Review of Systems 10 ROS reviewed and are negative except as noted in HPI Past Medical History Past Medical History: Hyperlipidemia, Hypertension, Myocardial Infarction (MT) Additional Past Medical History / Comment(s): GOUT bilateral feet/knees, generalized mild arthritis. Last Myocardial Infarction Date:: 05/31/16 History of Any Multi-Drug Resistant Organisms: None Reported Past Surgical History: Heart Catheterization With Stent, Hernia Repair, Joint Replacement, Orthopedic Surgery Additional Past Surgical History / Comment(s): REPAIR OF HOLE IN HIS HEART at [facility] in 2012, R inguinal hernia repair, colonoscopies, bilateral total hip arthroplasties, R knee arthroscopy, R shoulder with pin. Past Anesthesia/Blood Transfusion Reactions: No Reported Reaction Date of Last Stent Placement:: 2016 Past Psychological History: Anxiety, Depression Smoking Status: Never smoker Past Alcohol Use History: Rare Past Drug Use History: None Reported - Past Family History Father Family Medical History: Congestive Heart Failure (CHF) Additional Family Medical History / Comment(s): Father is 94 yrs old. Mother Family Medical History: Myocardial Infarction (MT) Additional Family Medical History / Comment(s): Mother had a MT at the age of 91 yrs. She is 94 yrs old. Medications and Allergies Home Medications Medication Instructions Recorded Confirmed Type Aspirin EC [Ecotrin Low Dose] 162 mg PO DAILY 05/31/16 01/22/20 History Losartan Potassium [Cozaar] 100 mg PO DAILY 05/31/16 01/22/20 History allopurinoL [Zyloprim] 300 mg PO DAILY 05/31/16 01/22/20 History Nitroglycerin Sl Tabs [Nitrostat] 0.4 mg SUBLINGUAL Q5M PRN #30 tab 06/01/16 01/22/20 Rx Famotidine 40 mg PO DAILY 05/17/17 01/22/20 History Atorvastatin Calcium [Lipitor] 80 mg PO DAILY #90 tablet 05/18/17 01/22/20 Rx Escitalopram [Lexapro] 10 mg PO DAILY 01/22/20 01/22/20 History Multivitamins, Thera [Multivitamin 1 tab PO DAILY 01/22/20 01/22/20 History (formulary)] Allergies Allergy/AdvReac Type Severity Reaction Status Date / Time No Known Allergies Allergy Verified 01/22/20 14:51 Physical Exam Osteopathic Statement: *. No significant issues noted on an osteopathic struct ural exam other than those noted in the History and Physical/Consult. Vitals: Vital Signs Temp Pulse Resp BP Pulse Ox 01/22/20 16:30 52 L 18 116/98 97 01/22/20 16:00 59 L 17 129/87 95 01/22/20 15:30 61 16 131/87 95 01/22/20 15:00 58 L 14 140/92 95 01/22/20 14:30 59 L 16 170/112 01/22/20 14:06 84 20 170/112 96 01/22/20 14:00 96 01/22/20 13:06 98.4 F 65 16 150/97 96 Intake and Output 01/22/20 01/22/20 01/22/20 06:59 14:59 22:59 Other: Weight 106.594 kg General: [Alert and oriented, well nourished, no acute distress]. Eye: [PERRL, EOMI, normal conjunctiva]. HENT: [Normocephalic, clear tympanic membranes, normal hearing, moist oral mu cosa, no scleral icterus, no sinus tenderness]. Neck: [Supple, non-tender, no carotid bruits, no JVD, no lymphadenopathy]. Lungs: [Clear to auscultation and percussion, non-labored respiration]. Heart: [Normal rate, regular rhythm, no murmur, gallop or edema]. Abdomen: [Soft, non-tender, non-distended, normal bowel sounds, no masses]. Musculoskeletal: [Normal range of motion and strength, no tenderness or swelling]. Skin: [Skin is warm, dry and pink, no rashes or lesions]. Neurologic: [Awake, alert, and oriented X3, CN II-XII intact]. Psychiatric: [Cooperative, appropriate mood and affect]. Results CBC & Chem 7: 01/22/20 14:01 01/22/20 14:01 Labs: Abnormal Lab Results - Last 24 Hours (Table) 01/22/20 01/22/20 Range/Units 14:01 14:01 D-Dimer 0.61 H (<0.60) mg/L FEU Glucose 109 H (74-99) mg/dL Thrombosis Risk Factor Assmnt - DVT/VTE Prophylaxis DVT/VTE Prophylaxis: Pharmacologic Prophylaxis ordered - Choose All That Apply Any of the Below Risk Factors Present?: No Other Risk Factors: Yes Each Risk Factor Represents 2 Points: Age 61-74 years Thrombosis Risk Factor Assessment Total Risk Factor Score: 2 Thrombosis Risk Factor Assessment Level: Low Risk Assessment and Plan Assessment: #Atypical chest pain: EKG shows no ST changes. Trend troponin 3. First set troponin is negative. Cardiology consult. Resume aspirin and statin. CT chest negative for pulmonary embolism. #Coronary artery disease status post stent: Management as above #Hypertension: Blood pressure is slightly elevated. Resume home BP meds. #Hyperlipidemia: Resume statin. Check lipid panel. #Depression: Resume Lexapro #GERD: Significant for famotidine The patient is placed in observation with an anticipated less than [address] ay for evaluation of [chest pain]. Surrogate decision-maker: [] CODE STATUS:[ FULL CODE] DVT prophylaxis: [Subcu heparin] Discussed with: [ED physician and nurse] Anticipated discharge date: [01/23/2020] Anticipated discharge place: [01/24/2020] A total of [50] minutes was spent on the care of this complex patient more than 50% of the time was spent in counseling and care coordination.
[2020-01-22] MEDS: HEPARIN SODIUM,PORCINE 5,000 UNIT/ML 1 ML VIAL SQ SCH ×2 (17:51→23:15)
[2020-01-22] MEDS ORDERED: ATORVASTATIN 80 MG TAB PO SCH (21:00)
[2020-01-23 05:39] LABS: Cholesterol 219 mg/dL (<200); HDL Cholesterol 50 mg/dL (40-60); LDL Cholesterol,Calculated 150 mg/dL (0-99); Triglycerides 94 mg/dL (<150)
[2020-01-23] MEDS: HEPARIN SODIUM,PORCINE 5,000 UNIT/ML 1 ML VIAL SQ SCH (08:36)
[2020-01-23] MEDS ORDERED: FAMOTIDINE 20 MG TAB PO SCH (09:00)
[2020-01-23] MEDS ORDERED: ASPIRIN 325 MG TAB PO SCH (09:00)
[2020-01-23] MEDS ORDERED: ESCITALOPRAM 10 MG TAB PO SCH (09:00)
[2020-01-23] MEDS ORDERED: allopurinoL 300 MG TAB PO SCH (09:00)
[2020-01-23] MEDS ORDERED: LOSARTAN 50 MG TAB PO SCH (09:00)
[2020-01-23] MEDS ORDERED: ASPIRIN 81 MG PO SCH (09:00)
[2020-01-23] MEDS ORDERED: MULTIVITAMINS, THERA 1 EACH TAB PO SCH (09:00)
[2020-01-23 12:17] VITALS: PULSE 59; RESP 18
--- NOTE | 2020-01-23 14:02 | P.CRDCN ---
History of Present Illness History of present illness: This is Nancy Eastman PA-C dictating a consult on this patient The patient was interviewed and examined by me as well as by Dr. Good Case discussed with Dr. Good and he agrees with the plan of care HPI Patient is a 69-year-old male with a history of CAD status post stenting to the LAD, hypertension, dyslipidemia who presented with complaints of chest discomfort. He is a patient of Dr. Sy. Last coronary angiogram in May 2019 showed a patent stent to the LAD a tortuous left coronary system, and aneurysmal right coronary system. He states that he was driving home from [facility] when he experienced a sudden onset of sharp left-sided chest discomfort. The following day he woke up with vomiting, malaise, and body aches. Denies any diarrhea. No fevers. No cough or shortness of breath. States he has been under a lot of stress recently. Came into the emergency department for further evaluation. Upon arrival the patient was afebrile and vital signs were stable. Chest x-ray showed no acute process. EKG showed sinus mechanism with incomplete right bundle branch block, left anterior fascicular block, nonspecific changes. Chest CT showed no evidence of pulmonary embolism, mild aneurysm of the ascending aorta 4.2 cm, not significantly changed from previous exam. No dissection. Troponin negative 3. Patient seen and examined resting in bed. Denies any further chest discomfort. Body aches are improving. No dizziness or shortness of breath. ROS: No fevers, chills or rigors, no cough, phlegm or expectoration, Positive for nausea and vomiting, no diarrhea no hematuria, dysuria, positive for body aches, no strokes or seizures, no skin lesions. EXAMINATION: Patient is afebrile, pulse in the high 50s, respirations 18, blood pressure 131 /79, oxygen saturation 97% on room air Patient seen and examined resting in bed, in no acute distress Lungs are clear to auscultation bilaterally, no wheezing rhonchi or crackles Heart is regular, no audible murmurs No JVD Abdomen soft and nontender to palpation No lower extremity edema REVIEW OF LABS, ECG & MEDICAL DATA WBC 5, hemoglobin 14.3, platelets 182, potassium 4.3, BUN 13, creatinine 1.05 Troponin negative 3 LDL 150 IMPRESSION / ASSESSMENT: #1 atypical chest discomfort, troponins negative 3, no acute changes seen on EKG #2 history of CAD status post stenting with most recent coronary angiogram in May 2019 showing patent stent to the LAD #3 hypertension #4 dyslipidemia, not well controlled #5 nausea and body aches PLAN: Add zetia 10 mg daily Continue statins and aspirin Evaluation and treatment for body aches and nausea by primary care team Past Medical History Past Medical History: GERD/Reflux, Hyperlipidemia, Hypertension, Myocardial Infarction ([place]), Osteoarthritis (OA) Additional Past Medical History / Comment(s): GOUT bilateral feet/knees, generalized mild arthritis. Last Myocardial Infarction Date:: 05/31/16 History of Any Multi-Drug Resistant Organisms: None Reported Past Surgical History: Heart Catheterization With Stent, Hernia Repair, Joint Replacement, Orthopedic Surgery Additional Past Surgical History / Comment(s): REPAIR OF HOLE IN HIS HEART at [facility] in 2012, R inguinal hernia repair, colonoscopies, bilateral total hip arthroplasties, R knee arthroscopy, R shoulder with pin. Past Anesthesia/Blood Transfusion Reactions: No Reported Reaction Date of Last Stent Placement:: 2016 Past Psychological History: Anxiety, Depression Additional Psychological History / Comment(s): Pt lives with his spouse. He is independent. Smoking Status: Never smoker Past Alcohol Use History: Rare Past Drug Use History: None Reported - Past Family History Father Family Medical History: Congestive Heart Failure (CHF) Additional Family Medical History / Comment(s): Father is 94 yrs old. Mother Family Medical History: Myocardial Infarction ([place]) Additional Family Medical History / Comment(s): Mother had a [place] at the age of 91 yrs. She is 94 yrs old. Medications and Allergies Home Medications Medication Instructions Recorded Confirmed Type Aspirin EC [Ecotrin Low Dose] 162 mg PO DAILY 05/31/16 01/22/20 History Losartan Potassium [Cozaar] 100 mg PO DAILY 05/31/16 01/22/20 History allopurinoL [Zyloprim] 300 mg PO DAILY 05/31/16 01/22/20 History Nitroglycerin Sl Tabs [Nitrostat] 0.4 mg SUBLINGUAL Q5M PRN #30 tab 06/01/16 01/22/20 Rx Famotidine 40 mg PO DAILY 05/17/17 01/22/20 History Atorvastatin Calcium [Lipitor] 80 mg PO DAILY #90 tablet 05/18/17 01/22/20 Rx Escitalopram [Lexapro] 10 mg PO DAILY 01/22/20 01/22/20 History Multivitamins, Thera [Multivitamin 1 tab PO DAILY 01/22/20 01/22/20 History (formulary)] Allergies Allergy/AdvReac Type Severity Reaction Status Date / Time No Known Allergies Allergy Verified 01/22/20 14:51 Physical Exam Vitals: Vital Signs Temp Pulse Pulse Resp BP BP Pulse Ox 01/23/20 12:00 98.8 F 59 L 18 131/79 97 01/23/20 08:00 98.5 F 44 L 16 114/58 96 01/23/20 04:00 98.1 F 57 L 19 123/74 95 01/22/20 23:41 98.1 F 47 L 20 109/48 98 01/22/20 20:00 98.3 F 57 L 19 96/51 96 01/22/20 17:36 97.7 F 54 L 18 113/70 98 01/22/20 16:30 52 L 18 116/98 97 01/22/20 16:00 59 L 17 129/87 95 01/22/20 15:30 61 16 131/87 95 01/22/20 15:00 58 L 14 140/92 95 01/22/20 14:30 59 L 16 170/112 01/22/20 14:06 84 20 170/112 96 Intake and Output 01/22/20 01/23/20 01/23/20 22:59 06:59 14:59 Other: Voiding Method Toilet Toilet Toilet # Voids 1 1 Weight 106.594 kg 103.9 kg Results 01/22/20 14:01 01/22/20 14:01 Cardiac Enzymes 01/22/20 01/22/20 01/22/20 Range/Units 14:01 14:01 17:29 AST 32 (17-59) U/L Troponin I <0.012 <0.012 (0.000-0.034) ng/mL 01/22/20 Range/Units 20:01 AST (17-59) U/L Troponin I <0.012 (0.000-0.034) ng/mL Coagulation 01/22/20 Range/Units 14:01 PT 10.0 (9.0-12.0) sec APTT 24.6 (22.0-30.0) sec Lipids 01/22/20 Range/Units 14:01 Triglycerides 94 (<150) mg/dL Cholesterol 219 H (<200) mg/dL HDL Cholesterol 50 (40-60) mg/dL CBC 01/22/20 Range/Units 14:01 WBC 5.0 (3.8-10.6) k/uL RBC 4.80 (4.30-5.90) m/uL Hgb 14.3 (13.0-17.5) gm/dL Hct 43.2 (39.0-53.0) % Plt Count 184 (150-450) k/uL Comprehensive Metabolic Panel 01/22/20 Range/Units 14:01 Sodium 140 (137-145) mmol/L Potassium 4.3 (3.5-5.1) mmol/L Chloride 107 (98-107) mmol/L Carbon Dioxide 25 (22-30) mmol/L BUN 13 (9-20) mg/dL Creatinine 1.05 (0.66-1.25) mg/dL Glucose 109 H (74-99) mg/dL Calcium 9.0 (8.4-10.2) mg/dL AST 32 (17-59) U/L ALT 24 (4-49) U/L Alkaline Phosphatase 70 (38-126) U/L Total Protein 6.9 (6.3-8.2) g/dL Albumin 4.0 (3.5-5.0) g/dL Current Medications Generic Name Dose Route Start Last Admin Trade Name Freq PRN Reason Stop Dose Admin Allopurinol 300 mg 01/23/20 09:00 01/23/20 08:37 Zyloprim PO 300 mg DAILY ALFREDO Administration Aspirin 162 mg 01/23/20 09:00 01/23/20 08:37 Aspirin PO 162 mg DAILY ALFREDO Administration Atorvastatin Calcium 80 mg 01/22/20 21:00 01/22/20 20:45 Lipitor PO 80 mg HS ALFREDO Administration Ezetimibe 10 mg 01/24/20 09:00 Zetia PO DAILY [facility] Escitalopram Oxalate 10 mg 01/23/20 09:00 01/23/20 08:37 Lexapro PO 10 mg DAILY ALFREDO Administration Famotidine 40 mg 01/23/20 09:00 01/23/20 08:37 Pepcid PO 40 mg DAILY ALFREDO Administration Heparin Sodium (Porcine) 5,000 unit 01/22/20 16:45 01/23/20 08:36 Heparin SQ 5,000 unit Q8HR ALFREDO Administration Losartan Potassium 100 mg 01/23/20 09:00 01/23/20 08:37 Cozaar PO 100 mg DAILY ALFREDO Administration Multivitamins 1 each 01/23/20 09:00 01/23/20 08:37 Theragran PO 1 each DAILY ALFREDO Administration Nitroglycerin 0.4 mg 01/22/20 15:37 Nitrostat SUBLINGUAL Q5M PRN Chest Pain Sodium Chloride 10 ml 01/22/20 21:00 01/23/20 08:37 Saline Flush IV 10 ml BID ALFREDO Administration Intake and Output 01/22/20 01/23/20 01/23/20 22:59 06:59 14:59 Other: Voiding Method Toilet Toilet Toilet # Voids 1 1 Weight 106.594 kg 103.9 kg 01/22/20 14:01 01/22/20 14:01
--- NOTE | 2020-01-23 16:56 | P.DS ---
Providers Date of admission: 01/22/20 15:38 Expected date of discharge: 01/23/20 Attending physician: Eloina Stoll DO Consults: 01/22/20 15:38 Consult Physician Urgent Consulting Provider: Kameron Good Consult Reason/Comments: cp Do you want consulting provider notified?: Yes Primary care physician: Nigel Rodriguez Hospital Course: Discharge Diagnosis: [ #Atypical chest pain: ACS ruled out #Coronary artery disease status post stent: #Hypertension: Resume home BP meds. #Hyperlipidemia: Resume statin. 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 Patient states that yesterday when he was driving back home from [facility] he felt left-sided chest pain that was nonradiating and sharp. Patient reports that it lasted for a couple hours and then went away. Patient states that this morning he felt nauseous and also vomited. Patient also reports feeling "achy" all over with muscle soreness. Patient denies fever, chills, diarrhea, loss of taste or smell, sore throat. Patient went camping with his family in [facility]. He is not aware of being exposed to anyone with COVID 19. Patient reports that when he had his last CT he had presented with vague symptoms and the symptoms he is currently presenting with are somewhat similar to when he had his CT. Currently in the ED patient is denying any chest pain. His EKG shows no ST changes. Patient's first set of troponin is negative. Patient's d-dimer is normal for his age. Patient's chest x-ray showed ectasia/tortuosity of the thoracic aorta which is slightly increased from 2017. However CTA chest showed no significant changes from previous computed tomography scan and was negative for pulmonary embolism. Patient was admitted for evaluation of his chest pain. His troponins were negative 3. Patient was seen by cardiology who deemed him stable for discharge from their standpoint. Patient was started on Zetia for hyperlipidemia. The following day patient reported that he was feeling much better and that his muscle soreness had improved. At the time of discharge patient also denied nausea and vomiting. Patient is deemed stable for discharge. His Covid 19 results are pending. Patient was told to call the hospital tomorrow to find out his results.] A total of [30] minutes of time were spent preparing this complex discharge summary . Patient Condition at Discharge: Good Plan - Discharge Summary Discharge Rx Participant: Yes New Discharge Prescriptions: New Ezetimibe [Zetia] 10 mg PO DAILY #30 tab Continue Losartan Potassium [Cozaar] 100 mg PO DAILY Aspirin EC [Ecotrin Low Dose] 162 mg PO DAILY allopurinoL [Zyloprim] 300 mg PO DAILY Nitroglycerin Sl Tabs [Nitrostat] 0.4 mg SUBLINGUAL Q5M PRN #30 tab PRN Reason: Chest Pain Famotidine 40 mg PO DAILY Atorvastatin Calcium [Lipitor] 80 mg PO DAILY #90 tablet Multivitamins, Thera [Multivitamin (formulary)] 1 tab PO DAILY Escitalopram [Lexapro] 10 mg PO DAILY Discharge Medication List Aspirin EC [Ecotrin Low Dose] 162 mg PO DAILY 05/31/16 [History] Losartan Potassium [Cozaar] 100 mg PO DAILY 05/31/16 [History] allopurinoL [Zyloprim] 300 mg PO DAILY 05/31/16 [History] Nitroglycerin Sl Tabs [Nitrostat] 0.4 mg SUBLINGUAL Q5M PRN #30 tab 06/01/16 [Rx] Famotidine 40 mg PO DAILY 05/17/17 [History] Atorvastatin Calcium [Lipitor] 80 mg PO DAILY #90 tablet 05/18/17 [Rx] Escitalopram [Lexapro] 10 mg PO DAILY 01/22/20 [History] Multivitamins, Thera [Multivitamin (formulary)] 1 tab PO DAILY 01/22/20 [History] Ezetimibe [Zetia] 10 mg PO DAILY #30 tab 01/23/20 [Rx] Follow up Appointment(s)/Referral(s): Nigel Rodriguez MD [Primary Care Provider] - 1-2 days Kameron Good MD [STAFF PHYSICIAN] - 10 Days Discharge Disposition: HOME SELF-CARE
[2020-01-23 17:17] VITALS: BP 134/81; TEMP 98.9
[2020-01-24] MEDS ORDERED: EZETIMIBE 10 MG TAB PO SCH (09:00)
== END 2020-01-23 17:54 | disposition home or self-care (01) ==
LOC: EC 12:58 → 3SCARD 15:38
PROVIDERS: ADMIT Internal Medicine; ATTEND Internal Medicine
DX: R07.89 Other chest pain (principal); I45.2 Bifascicular block; E78.5 Hyperlipidemia, unspecified; I10 Essential (primary) hypertension; I25.2 Old myocardial infarction; M15.9 Polyosteoarthritis, unspecified; I71.2 Thoracic aortic aneurysm, without rupture; M10.9 Gout, unspecified; Z95.5 Presence of coronary angioplasty implant and graft; Z98.890 Other specified postprocedural states; Z96.643 Presence of artificial hip joint, bilateral; F41.9 Anxiety disorder, unspecified; F32.9 Major depressive disorder, single episode, unspecified; Z82.49 Family history of ischemic heart disease and other diseases of the circulatory system; K21.9 Gastro-esophageal reflux disease without esophagitis; I25.10 Atherosclerotic heart disease of native coronary artery without angina pectoris; Z20.828 Contact with and (suspected) exposure to other viral communicable diseases; R11.2 Nausea with vomiting, unspecified; Z79.899 Other long term (current) drug therapy; Z79.82 Long term (current) use of aspirin
CPT/HCPCS: 96372 ×2; 93005 ×2; 99285; 36415; 85379; 80061; 80053; 84443; 83735; 84484; 85025; 85610; 85730; 71046; 71275; G0378 ×2; U0003; J1644 ×2; Q9967

== ENCOUNTER 2020-02-05 09:10 | Inpatient (IN) | payer MEDICARE, OTHER ==
[2020-02-05] MEDS ORDERED: SODIUM CHLORIDE 0.9% 1,000 ML IV STA (09:38)
[2020-02-05] MEDS ORDERED: DIPH,PERTUS(ACELL)TETVAC-LF 0.5 ML VIAL IM ONE (09:49)
--- NOTE | 2020-02-05 09:50 | ED ---
Nausea/Vomiting/Diarrhea HPI - General Chief complaint: Nausea/Vomiting/Diarrhea Stated complaint: vomiting, nausea Time Seen by Provider: 02/05/20 09:25 Source: patient, RN notes reviewed Mode of arrival: ambulatory Limitations: no limitations - History of Present Illness Initial comments: This a 69-year-old male presents emergency Department with multiple complaints. Patient states that he's been having dry heaving for the last 4-6 weeks. Patient states is getting progressively worse. Patient states she's also had ongoing headache which has not been evaluated. Patient has seen his PCP and was admitted to the hospital for other reasons. Patient states that he cannot live like to stay longer. He states he has been increasingly depressed and which patient states he already has SAD. Patient states this is different than he normally depression. Patient states that he attempted to harm himself by cutting his wrist. Patient is unsure when his last tetanus was. Patient denies any current chest pain, shortness breath, neck pain denies any focal weakness denies any fevers or chills no abdominal pain states that he just feels nauseated but sometimes feels better after he eats. No history of PUD, denies any diarrhea, constipation, dysuria, hematuria - Related Data Home Medications Medication Instructions Recorded Confirmed Aspirin EC [Ecotrin Low Dose] 162 mg PO DAILY 05/31/16 02/05/20 Losartan Potassium [Cozaar] 100 mg PO DAILY 05/31/16 02/05/20 allopurinoL [Zyloprim] 300 mg PO DAILY 05/31/16 02/05/20 Famotidine 40 mg PO DAILY 05/17/17 02/05/20 Escitalopram [Lexapro] 10 mg PO DAILY 01/22/20 02/05/20 Multivitamins, Thera [Multivitamin 1 tab PO DAILY 01/22/20 02/05/20 (formulary)] Nitroglycerin Sl Tabs [Nitrostat] 0.4 mg SL Q5M PRN 02/05/20 02/05/20 Allergies Allergy/AdvReac Type Severity Reaction Status Date / Time No Known Allergies Allergy Verified 02/05/20 10:59 Review of Systems ROS Statement: Those systems with pertinent positive or pertinent negative responses have been documented in the HPI. ROS Other: All systems not noted in ROS Statement are negative. Past Medical History Past Medical History: GERD/Reflux, Hyperlipidemia, Hypertension, Myocardial Infarction ([place]), Osteoarthritis ([place]) Additional Past Medical History / Comment(s): GOUT bilateral feet/knees, generalized mild arthritis. Last Myocardial Infarction Date:: 05/31/16 History of Any Multi-Drug Resistant Organisms: None Reported Past Surgical History: Heart Catheterization With Stent, Hernia Repair, Joint Replacement, Orthopedic Surgery Additional Past Surgical History / Comment(s): REPAIR OF HOLE IN HIS HEART at [facility] in 2012, R inguinal hernia repair, colonoscopies, bilateral total hip arthroplasties, R knee arthroscopy, R shoulder with pin. Past Anesthesia/Blood Transfusion Reactions: No Reported Reaction Date of Last Stent Placement:: 2016 Past Psychological History: Anxiety, Depression Smoking Status: Never smoker Past Alcohol Use History: Rare Past Drug Use History: None Reported - Past Family History Father Family Medical History: Congestive Heart Failure (CHF) Additional Family Medical History / Comment(s): Father is 94 yrs old. Mother Family Medical History: Myocardial Infarction ([place]) Additional Family Medical History / Comment(s): Mother had a [place] at the age of 91 yrs. She is 94 yrs old. General Exam Limitations: no limitations General appearance: alert, in no apparent distress Head exam: Present: atraumatic, normocephalic, normal inspection Eye exam: Present: normal appearance, PERRL, EOMI. Absent: scleral icterus, conjunctival injection, periorbital swelling ENT exam: Present: normal exam, normal oropharynx, mucous membranes moist Neck exam: Present: normal inspection, full ROM. Absent: tenderness, meningismus, lymphadenopathy Respiratory exam: Present: normal lung sounds bilaterally. Absent: respiratory distress, wheezes, rales, rhonchi, stridor Cardiovascular Exam: Present: regular rate, normal rhythm, normal heart sounds. Absent: systolic murmur, diastolic murmur, rubs, gallop, clicks GI/Abdominal exam: Present: soft, normal bowel sounds. Absent: distended, tenderness, guarding, rebound, rigid Back exam: Absent: CVA tenderness (R), CVA tenderness (L) Neurological exam: Present: alert, oriented X3, reflexes normal. Absent: motor sensory deficit Psychiatric exam: Present: depressed Skin exam: Present: warm, dry, intact, normal color, other (Superficial abrasions to the left wrist). Absent: rash Course Vital Signs 02/05/20 09:11 Temperature 99.3 F Pulse Rate 76 Respiratory 19 Rate Blood Pressure 127/93 O2 Sat by Pulse 95 Oximetry Medical Decision Making - Medical Decision Making patient presented for multiple complaints. Patient's labs were reviewed no significant findings. Patient has ongoing nausea vomiting may related to his depression. Patient will be admitted for psychiatric treatment as he is suicida l and attempted to harm himself today. - Lab Data Result diagrams: 02/05/20 09:52 02/05/20 09:52 Lab Results 02/05/20 02/05/20 02/05/20 Range/Units 09:52 09:52 09:52 WBC 6.4 (3.8-10.6) k/uL RBC 5.08 (4.30-5.90) m/uL Hgb 15.0 (13.0-17.5) gm/dL Hct 45.6 (39.0-53.0) % MCV 89.9 (80.0-100.0) fL MCH 29.6 (25.0-35.0) pg MCHC 32.9 (31.0-37.0) g/dL RDW 14.1 (11.5-15.5) % Plt Count 200 (150-450) k/uL Neutrophils % 69 % Lymphocytes % 19 % Monocytes % 7 % Eosinophils % 3 % Basophils % 1 % Neutrophils # 4.4 (1.3-7.7) k/uL Lymphocytes # 1.2 (1.0-4.8) k/uL Monocytes # 0.4 (0-1.0) k/uL Eosinophils # 0.2 (0-0.7) k/uL Basophils # 0.0 (0-0.2) k/uL Sodium 139 (137-145) mmol/L Potassium 4.5 (3.5-5.1) mmol/L Chloride 104 (98-107) mmol/L Carbon Dioxide 28 (22-30) mmol/L Anion Gap 7 mmol/L BUN 14 (9-20) mg/dL Creatinine 1.02 (0.66-1.25) mg/dL Est GFR (CKD-EPI)AfAm 87 (>60 ml/min/1.73 sqM) Est GFR (CKD-EPI)NonAf 75 (>60 ml/min/1.73 sqM) Glucose 109 H (74-99) mg/dL Plasma Lactic Acid Michael (0.7-2.0) mmol/L Calcium 8.9 (8.4-10.2) mg/dL Magnesium 1.9 (1.6-2.3) mg/dL Total Bilirubin 0.9 (0.2-1.3) mg/dL AST 24 (17-59) U/L ALT 23 (4-49) U/L Alkaline Phosphatase 74 (38-126) U/L Troponin I (0.000-0.034) ng/mL Total Protein 6.8 (6.3-8.2) g/dL Albumin 4.0 (3.5-5.0) g/dL Amylase 34 (30-110) U/L Lipase 259 (23-300) U/L Urine Color Yellow Urine Appearance Clear (Clear) Urine pH 5.5 (5.0-8.0) Ur Specific [place] 1.018 (1.001-1.035) Urine Protein Negative (Negative) Urine Glucose (UA) Negative (Negative) Urine Ketones Negative (Negative) Urine Blood Negative (Negative) Urine Nitrite Negative (Negative) Urine Bilirubin Negative (Negative) Urine Urobilinogen <2.0 (<2.0) mg/dL Ur Leukocyte Esterase Negative (Negative) Urine Opiates Screen Not Detected (NotDetected) Ur Oxycodone Screen Not Detected (NotDetected) Urine Methadone Screen Not Detected (NotDetected) Ur Propoxyphene Screen Not Detected (NotDetected) Ur Barbiturates Screen Not Detected (NotDetected) U Tricyclic Antidepress Not Detected (NotDetected) Ur Phencyclidine Scrn Not Detected (NotDetected) Ur Amphetamines Screen Not Detected (NotDetected) U Methamphetamines Scrn Not Detected (NotDetected) U Benzodiazepines Scrn Not Detected (NotDetected) Urine Cocaine Screen Not Detected (NotDetected) U Marijuana (THC) Screen Not Detected (NotDetected) Serum Alcohol <10 mg/dL 02/05/20 02/05/20 Range/Units 09:52 09:52 WBC (3.8-10.6) k/uL RBC (4.30-5.90) m/uL Hgb (13.0-17.5) gm/dL Hct (39.0-53.0) % MCV (80.0-100.0) fL MCH (25.0-35.0) pg MCHC (31.0-37.0) g/dL RDW (11.5-15.5) % Plt Count (150-450) k/uL Neutrophils % % Lymphocytes % % Monocytes % % Eosinophils % % Basophils % % Neutrophils # (1.3-7.7) k/uL Lymphocytes # (1.0-4.8) k/uL Monocytes # (0-1.0) k/uL Eosinophils # (0-0.7) k/uL Basophils # (0-0.2) k/uL Sodium (137-145) mmol/L Potassium (3.5-5.1) mmol/L Chloride (98-107) mmol/L Carbon Dioxide (22-30) mmol/L Anion Gap mmol/L BUN (9-20) mg/dL Creatinine (0.66-1.25) mg/dL Est GFR (CKD-EPI)AfAm (>60 ml/min/1.73 sqM) Est GFR (CKD-EPI)NonAf (>60 ml/min/1.73 sqM) Glucose (74-99) mg/dL Plasma Lactic Acid Michael 1.2 (0.7-2.0) mmol/L Calcium (8.4-10.2) mg/dL Magnesium (1.6-2.3) mg/dL Total Bilirubin (0.2-1.3) mg/dL AST (17-59) U/L ALT (4-49) U/L Alkaline Phosphatase (38-126) U/L Troponin I <0.012 (0.000-0.034) ng/mL Total Protein (6.3-8.2) g/dL Albumin (3.5-5.0) g/dL Amylase (30-110) U/L Lipase (23-300) U/L Urine Color Urine Appearance (Clear) Urine pH (5.0-8.0) Ur Specific [place] (1.001-1.035) Urine Protein (Negative) Urine Glucose (UA) (Negative) Urine Ketones (Negative) Urine Blood (Negative) Urine Nitrite (Negative) Urine Bilirubin (Negative) Urine Urobilinogen (<2.0) mg/dL Ur Leukocyte Esterase (Negative) Urine Opiates Screen (NotDetected) Ur Oxycodone Screen (NotDetected) Urine Methadone Screen (NotDetected) Ur Propoxyphene Screen (NotDetected) Ur Barbiturates Screen (NotDetected) U Tricyclic Antidepress (NotDetected) Ur Phencyclidine Scrn (NotDetected) Ur Amphetamines Screen (NotDetected) U Methamphetamines Scrn (NotDetected) U Benzodiazepines Scrn (NotDetected) Urine Cocaine Screen (NotDetected) U Marijuana (THC) Screen (NotDetected) Serum Alcohol mg/dL - EKG Data -: EKG Interpreted by Me EKG Comments: EKG performed at 950 normal sinus rhythm rate of 64. 194 QRS 108 QT status QTC 414/427 Disposition Clinical Impression: Depression, Suicidal ideation, Nausea & vomiting Disposition: TRANSFER TO PSYCH HOSP/UNIT Referrals: Josue Schneider MD [Primary Care Provider] - 1-2 days
[2020-02-05 10:21] LABS: Appearance,Urine Clear (Clear); Bilirubin,Urine Negative (Negative); Blood,Urine Negative (Negative); Color,Urine Yellow; Glucose,Urine (UA) Negative (Negative); Ketones,Urine Negative (Negative); Leukocyte Esterase,Urine Negative (Negative); Nitrite,Urine Negative (Negative); PH, Urine 5.5 (5.0-8.0); Protein,Urine Negative (Negative); Specific Gravity,Urine 1.018 (1.001-1.035); Urobilinogen,Urine <2.0 mg/dL (<2.0)
[2020-02-05 10:24] LABS: Basophils % (A) 1 %; Eosinophils # (A) 0.2 k/uL (0-0.7); Eosinophils % (A) 3 %; HCT 45.6 % (39.0-53.0); Lymphocytes # (A) 1.2 k/uL (1.0-4.8); Lymphocytes % (A) 19 %; MCH 29.6 pg (25.0-35.0); MCHC 32.9 g/dL (31.0-37.0); MCV 89.9 fL (80.0-100.0); Mean Platelet Volume 7.1; Monocytes # (A) 0.4 k/uL (0-1.0); Monocytes % (A) 7 %; Neutrophils # (A) 4.4 k/uL (1.3-7.7); Neutrophils % (A) 69 %; Platelet Count 200 k/uL (150-450); RBC 5.08 m/uL (4.30-5.90); RDW 14.1 % (11.5-15.5); WBC 6.4 k/uL (3.8-10.6)
[2020-02-05 10:28] LABS: ALT 23 U/L (4-49); AST 24 U/L (17-59); African American GFR (CKD) 87 (>60 ml/min/1.73 sqM); Alcohol <10 mg/dL; Alkaline Phosphatase 74 U/L (38-126); Amylase 34 U/L (30-110); Anion Gap 7 mmol/L; Blood Urea Nitrogen 14 mg/dL (9-20); Calcium 8.9 mg/dL (8.4-10.2); Carbon Dioxide 28 mmol/L (22-30); Chloride 104 mmol/L (98-107); Glucose 109 mg/dL (74-99); Magnesium 1.9 mg/dL (1.6-2.3); Non-African American GFR(CKD) 75 (>60 ml/min/1.73 sqM); Potassium 4.5 mmol/L (3.5-5.1); Sodium 139 mmol/L (137-145); Total Bilirubin 0.9 mg/dL (0.2-1.3); Total Protein 6.8 g/dL (6.3-8.2)
--- NOTE | 2020-02-05 10:30 | CT ---
EXAMINATION TYPE: CT brain wo con DATE OF EXAM: 02/05/2020 HISTORY: Headache X [address] DLP: 1099.4 mGycm. Automated Exposure Control for Dose Reduction was Utilized. TECHNIQUE: CT scan of the head is performed without contrast. COMPARISON: CT brain March 13, 2017 MRI brain August 08, 2012. FINDINGS: There is no acute intracranial hemorrhage or midline shift identified. There is diffuse v entricular and sulcal prominence consistent with diffuse age-related cerebral atrophy. There is low- attenuation in the periventricular white matter consistent with chronic small vessel ischemic change. 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 Morgan cisterna magna p osterior aspect posterior fossa again seen. The globes are intact and the visualized sinuses are nitesh r. IMPRESSION: No acute intracranial hemorrhage or midline shift. There is mild to moderate diffuse ag e-related cerebral atrophy and moderate chronic small vessel ischemic change along with old left fron jossy lobe infarct already demonstrated. No significant change from prior studies.
[2020-02-05 10:40] LABS: Amphetamine Screen,Urine Not Detected (NotDetected); Barbiturate Screen,Urine Not Detected (NotDetected); Benzodiazepines Screen,Urine Not Detected (NotDetected); Cocaine Screen,Urine Not Detected (NotDetected); Methadone Screen, Urine Not Detected (NotDetected); Opiate Screen,Urine Not Detected (NotDetected); Oxycodone Screen, Urine Not Detected (NotDetected); Phencyclidine Screen,Urine Not Detected (NotDetected); Tricyclic Antidepressant,Urine Not Detected (NotDetected); Urn Cannabinoid Scrn Not Detected (NotDetected)
[2020-02-05] MEDS ORDERED: ONDANSETRON 4 MG/2 ML VIAL IVP STA (11:05)
[2020-02-05] MEDS ORDERED: ZIPRASIDONE 20 MG VIAL IM PRN (14:03)
[2020-02-05] MEDS ORDERED: MAGNESIUM HYDROXIDE 2,400 MG/10 ML CUP PO PRN (14:03)
[2020-02-05] MEDS ORDERED: MAG HYDROX/AL HYDROX/SIMETH 30 ML CUP PO PRN (14:03)
[2020-02-05] MEDS ORDERED: ACETAMINOPHEN TAB 325 MG TAB PO PRN (14:03)
[2020-02-05] MEDS ORDERED: LORazepam 1 MG TAB PO PRN (14:03)
[2020-02-06] MEDS: allopurinoL 300 MG TAB PO SCH (08:32)
[2020-02-06] MEDS: ASPIRIN 81 MG PO SCH (08:34)
[2020-02-06] MEDS: MULTIVITAMINS, THERA 1 EACH TAB PO SCH (08:34)
[2020-02-06] MEDS: LOSARTAN 50 MG TAB PO SCH (08:34)
[2020-02-06] MEDS: FAMOTIDINE 20 MG TAB PO SCH (08:34)
[2020-02-06] MEDS ORDERED: ESCITALOPRAM 10 MG TAB PO SCH (09:00)
[2020-02-06 09:30] LABS: Basophils % (A) 1 %; Eosinophils # (A) 0.2 k/uL (0-0.7); Eosinophils % (A) 3 %; HCT 47.9 % (39.0-53.0); HGB 15.5 gm/dL (13.0-17.5); Lymphocytes % (A) 16 %; MCH 29.7 pg (25.0-35.0); MCHC 32.4 g/dL (31.0-37.0); MCV 91.7 fL (80.0-100.0); Mean Platelet Volume 6.9; Monocytes # (A) 0.3 k/uL (0-1.0); Monocytes % (A) 5 %; Neutrophils % (A) 75 %; Platelet Count 240 k/uL (150-450); RBC 5.23 m/uL (4.30-5.90); RDW 13.9 % (11.5-15.5); WBC 6.6 k/uL (3.8-10.6)
[2020-02-06 09:39] LABS: Albumin 4.2 g/dL (3.5-5.0); Calcium 9.2 mg/dL (8.4-10.2); Potassium 4.2 mmol/L (3.5-5.1); Total Protein 7.1 g/dL (6.3-8.2)
[2020-02-06] MEDS ORDERED: ESCITALOPRAM 5 MG TAB PO STA (11:52)
[2020-02-06] MEDS ORDERED: ONDANSETRON 4 MG TAB PO PRN (11:53)
--- NOTE | 2020-02-06 12:02 | P.HP ---
Psychiatric H&P - . H&P Date: 02/06/20 History & Physical: Allergies Allergy/AdvReac Type Severity Reaction Status Date / Time No Known Allergies Allergy Verified 02/05/20 14:48 Vital Signs Temp 97.6 F 02/06/20 06:56 Pulse 82 02/06/20 08:36 Resp 18 02/06/20 06:56 BP 141/81 02/06/20 08:36 Pulse Ox 96 02/05/20 14:30 Intake & Output 02/05/20 02/06/20 02/06/20 18:59 06:59 18:59 Weight 101.3 kg Laboratory Last Values WBC 6.6 k/uL (3.8-10.6) 02/06/20 09:09 RBC 5.23 m/uL (4.30-5.90) 02/06/20 09:09 Hgb 15.5 gm/dL (13.0-17.5) 02/06/20 09:09 Hct 47.9 % (39.0-53.0) 02/06/20 09:09 MCV 91.7 fL (80.0-100.0) 02/06/20 09:09 MCH 29.7 pg (25.0-35.0) 02/06/20 09:09 MCHC 32.4 g/dL (31.0-37.0) 02/06/20 09:09 RDW 13.9 % (11.5-15.5) 02/06/20 09:09 Plt Count 240 k/uL (150-450) 02/06/20 09:09 Neutrophils % 75 % 02/06/20 09:09 Lymphocytes % 16 % 02/06/20 09:09 Monocytes % 5 % 02/06/20 09:09 Eosinophils % 3 % 02/06/20 09:09 Basophils % 1 % 02/06/20 09:09 Neutrophils # 5.0 k/uL (1.3-7.7) 02/06/20 09:09 Lymphocytes # 1.0 k/uL (1.0-4.8) 02/06/20 09:09 Monocytes # 0.3 k/uL (0-1.0) 02/06/20 09:09 Eosinophils # 0.2 k/uL (0-0.7) 02/06/20 09:09 Basophils # 0.0 k/uL (0-0.2) 02/06/20 09:09 Sodium 139 mmol/L (137-145) 02/06/20 09:09 Potassium 4.2 mmol/L (3.5-5.1) 02/06/20 09:09 Chloride 104 mmol/L (98-107) 02/06/20 09:09 Carbon Dioxide 25 mmol/L (22-30) 02/06/20 09:09 Anion Gap 10 mmol/L 02/06/20 09:09 BUN 15 mg/dL (9-20) 02/06/20 09:09 Creatinine 1.12 mg/dL (0.66-1.25) 02/06/20 09:09 Est GFR (CKD-EPI)AfAm 77 (>60 ml/min/1.73 sqM) 02/06/20 09:09 Est GFR (CKD-EPI)NonAf 67 (>60 ml/min/1.73 sqM) 02/06/20 09:09 Glucose 188 mg/dL (74-99) H 02/06/20 09:09 Plasma Lactic Acid Michael 1.2 mmol/L (0.7-2.0) 02/05/20 09:52 Calcium 9.2 mg/dL (8.4-10.2) 02/06/20 09:09 Magnesium 1.9 mg/dL (1.6-2.3) 02/05/20 09:52 Total Bilirubin 1.0 mg/dL (0.2-1.3) 02/06/20 09:09 AST 24 U/L (17-59) 02/06/20 09:09 ALT 22 U/L (4-49) 02/06/20 09:09 Alkaline Phosphatase 75 U/L (38-126) 02/06/20 09:09 Troponin I <0.012 ng/mL (0.000-0.034) 02/05/20 09:52 Total Protein 7.1 g/dL (6.3-8.2) 02/06/20 09:09 Albumin 4.2 g/dL (3.5-5.0) 02/06/20 09:09 Triglycerides 105 mg/dL (<150) 02/06/20 09:09 Cholesterol 197 mg/dL (<200) 02/06/20 09:09 LDL Cholesterol, Calc 127 mg/dL (0-99) H 02/06/20 09:09 HDL Cholesterol 49 mg/dL (40-60) 02/06/20 09:09 Amylase 34 U/L (30-110) 02/05/20 09:52 Lipase 259 U/L (23-300) 02/05/20 09:52 TSH 2.620 mIU/L (0.465-4.680) 02/06/20 09:09 Urine Color Yellow 02/05/20 09:52 Urine Appearance Clear (Clear) 02/05/20 09:52 Urine pH 5.5 (5.0-8.0) 02/05/20 09:52 Ur Specific [place] 1.018 (1.001-1.035) 02/05/20 09:52 Urine Protein Negative (Negative) 02/05/20 09:52 Urine Glucose (UA) Negative (Negative) 02/05/20 09:52 Urine Ketones Negative (Negative) 02/05/20 09:52 Urine Blood Negative (Negative) 02/05/20 09:52 Urine Nitrite Negative (Negative) 02/05/20 09:52 Urine Bilirubin Negative (Negative) 02/05/20 09:52 Urine Urobilinogen <2.0 mg/dL (<2.0) 02/05/20 09:52 Ur Leukocyte Esterase Negative (Negative) 02/05/20 09:52 Urine Opiates Screen Not Detected (NotDetected) 02/05/20 09:52 Ur Oxycodone Screen Not Detected (NotDetected) 02/05/20 09:52 Urine Methadone Screen Not Detected (NotDetected) 02/05/20 09:52 Ur Propoxyphene Screen Not Detected (NotDetected) 02/05/20 09:52 Ur Barbiturates Screen Not Detected (NotDetected) 02/05/20 09:52 U Tricyclic Antidepress Not Detected (NotDetected) 02/05/20 09:52 Ur Phencyclidine Scrn Not Detected (NotDetected) 02/05/20 09:52 Ur Amphetamines Screen Not Detected (NotDetected) 02/05/20 09:52 U Methamphetamines Scrn Not Detected (NotDetected) 02/05/20 09:52 U Benzodiazepines Scrn Not Detected (NotDetected) 02/05/20 09:52 Urine Cocaine Screen Not Detected (NotDetected) 02/05/20 09:52 U Marijuana (THC) Screen Not Detected (NotDetected) 02/05/20 09:52 Serum Alcohol <10 mg/dL 02/05/20 09:52 02/06/20 11:55 IDENTIFYING DATA: Patient is a 69-year-old male who currently lives with his has 3 kids and 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 HPI: Patient presented to the hospital yesterday with his after patient was complaining of some nausea and vomiting and also was complaining of depression and suicidal thoughts. Patient had apparently called his over the phone and stated that he is having thoughts of ending his life. When patient was evaluated today he appeared to be neatly groomed and wearing street clothing. He had a soft tone of voice and was cooperative and polite with the service writer. He states that he deals with "seasonal depression" and states that he feels that it "came early this time" and states that he usually comes on in the fall. He states that he's been vomiting daily due to stress from his work. He states that he is feeling overwhelmed with his business which is leading to anxiety. He states that he is in a "bad state of mind". He claims that he's been sleeping poorly for the past 2-3 weeks. He claims that he was having thoughts of wanting to cut himself or shoot himself with his gun. He claims that he changes his mind about suicide and claims that "I have a lot to live for". He states that he has been taking his Lexapro which "usually helps me" and was prescribed by his primary care physician. He admits to problems with concentration and some guilt. Patient denies any suicidal or homicidal ideations intent or plan. At this time patient denies any auditory or visual hallucinations. Patient denies any flight of ideas racing thoughts and increased in goal directed behavior. Patient admits to using no recreational drugs and denies any cigarette use. PAST PSYCHIATRIC HISTORY: Patient states that history of depression and anxiety. He states that he has previously been on Lexapro for his mood. He claims that he was once hospitalized several years ago at [facility] for depression. Patient denies any psychiatric outpatient follow-up. Patient denies any history of suicide attempts in the past. PMH: Osteoarthritis, hypertension, hyperlipidemia, history of myocardial infarction. ALLERGIES: as per EMR CHEMICAL DEPENDENCY HISTORY: as per HPI FAMILY PSYCHIATRIC/SUBSTANCE USE HISTORY: denies SOCIAL HISTORY: Patient was born and raised in [facility] and states that he completed 3 years of college doing business. He states that he has 3 kids and criminal lives with his in a house. 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 He denied any legal history or any history. MENTAL STATUS EXAM: General Appearance: Patient appears to be stated age is alert, directable, polite, and attempts to cooperate. Patient appears to have fair hygiene and grooming. Behavior: Patient is seated without any agitated behavior. Polite Speech: Patient's speech is fluent and nonpressured. Soft tone of voice Mood/Affect: Patient reports their mood is depressed, affect is congruent and constricted. Suicidality/Homicidality: Patient denies having any homicidal ideation intent or plan. Denies any suicidal ideations intent or plan Perceptions: Patient denies any visual hallucinations and denies any auditory hallucinations Though content/process: There is no evidence of any delusional thought content and thought process is linear and goal-directed. Whitman, logical. Depressive content Memory and concentration: AOX3, grossly intact for the purposes of this session. Can spell "WORLD" backwards Judgment and insight: poor STRENGTHS/WEAKNESSES: strength is that patient is resilient. Weakness is that p atient has poor history of mental illness and depression INTELLECT: average IMPRESSIONS: Major depressive disorder, recurrent, severe PLAN: -Patient is admitted under voluntary status to MHU for stabilization of psychiatric symptoms and safety. Patient signed adult voluntary form and medication consent and is placed in patient's chart. -Medications : After discussing different antidepressant options, patient wanted to remain on Lexapro however had the dose increased to 15 mg daily for mood/anxiety. Patient is agreeable to take trazodone 25 mg for insomnia/mood. -Ativan and Geodon PRN for agitation/aggression -Patient was informed of the risks, benefits and side effects of the medication and patient verbally consented to taking the medications. Patient signed med consent form and was placed in chart. -Internal Medicine consult to perform medical evaluation and physical. -NRT -not needed as patient does not smoke. -SW on board for discharge planning. Encourage patient to participate in groups to work on coping skills. Prior to discharge patient's guns should be verified that they are locked away or removed from the house by his .
--- NOTE | 2020-02-06 16:33 | P.CONS ---
History of Present Illness - Reason for Consult Consult date: 02/06/20 Medical examination physical examination Requesting physician: Ronaldo Santiago - Chief Complaint Major depression, suicidal ideation - History of Present Illness This 69-year-old gentleman who will be soon established seeing Dr. 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 Patient was self cutting, has a gun in the house and was having suicidal ideation either by cutting or shooting himself with his gun. There is no actual plan, patient now is thankful that he is in the mental health unit receiving help. Patient has slept good last night, there is no chest pain palpitations, patient does not have any prior arrhythmias in the past. Pertinent labs are positive for hyperglycemia, 188 sugars, no diabetes history, CBC is normal, creatinine is 1.12, GFR of 67, TSH normal 2.6, lipase normal, urinalysis normal. EKG for review today shows normal sinus rhythm with left anterior fascicular block, no QT prolongation Review of Systems Constitutional: Reports as per HPI, Denies anorexia, Denies chills, Denies chronic headaches, Denies chronic pain, Denies daytime sleepiness, Denies fatigue, Denies fever, Denies lethargy, Denies malaise, Denies night sweats, Denies poor appetite, Denies sweats, Denies weakness, Denies weight gain, Denies weight loss Ears, nose, mouth and throat: Reports as per HPI, Denies ant. neck pain, Denies bleeding gums, Denies dental pain, Denies dysphagia, Denies epistaxis, Denies headache, Denies hoarseness, Denies mouth pain, Denies nasal congestion, Denies nasal discharge, Denies neck fullness/pressure, Denies neck lump, Denies nose pain, Denies odynophagia, Denies post-nasal drip, Denies sinus pain, Denies sinus pressure, Denies swelling in mouth, Denies swelling in throat, Denies sore throat, Denies vertigo, Denies voice changes Cardiovascular: Reports as per HPI, Denies chest pain, Denies claudication, Denies decreased exercise tolerance, Denies dyspnea on exertion, Denies edema, Denies high blood pressure, Denies irregular heart beat, Denies leg edema, Denies lightheadedness, Denies orthopnea, Denies palpitations, Denies paroxysmal nocturnal dyspnea, Denies phlebitis, Denies rapid heart beat, Denies shortness of breath, Denies syncope Respiratory: Reports as per HPI, Denies congestion, Denies cough, Denies cough with sputum, Denies dyspnea, Denies excessive sputum, Denies hemoptysis, Denies home oxygen, Denies pain, Denies pain on inspiration, Denies pleurisy, Denies respiratory infections, Denies sleep apnea, Denies snoring, Denies wheezing Gastrointestinal: Reports as per HPI, Denies abdominal pain, Denies belching, Denies bloating, Denies BRBPR, Denies change in bowel habits, Denies coffee ground emesis, Denies constipation, Denies diarrhea, Denies dyspepsia, Denies early satiety, Denies excessive gas, Denies heartburn, Denies hematemesis, Denies hematochezia, Denies indigestion, Denies jaundice, Denies lactose intolerance, Denies loss of appetite, Denies melena, Denies nausea, Denies vomiting Genitourinary: Reports as per HPI Musculoskeletal: Reports as per HPI Integumentary: Reports as per HPI, Reports wounds (Superficial laceration 3 laceration not requiring any stitches, left wrist) Neurological: Reports as per HPI, Denies aphasia, Denies ataxia, Denies balance difficulties, Denies burning pain, Denies change in mentation, Denies change in smell/taste, Denies change in speech, Denies confusion, Denies convulsions, Denies double vision, Denies gait dysfunction, Denies head injury, Denies headaches, Denies hearing difficulties, Denies lack of coordination, Denies loss of vision, Denies memory loss, Denies migraines, Denies motor disturbance, Denies numbness, Denies paralysis, Denies paresthesias, Denies seizures, Denies sensory deficit, Denies spasticity, Denies syncope, Denies tic, Denies tingling, Denies transient paralysis, Denies tremors, Denies vertigo, Denies weakness, Denies visual changes Psychiatric: Reports as per HPI, Reports anxiety, Reports change in appetite, Reports change in sleep habits, Reports depression, Reports difficulty concentrating, Reports hopelessness, Reports sleep disturbances, Reports suicidal ideation Endocrine: Reports as per HPI, Denies cold intolerance, Denies deepening of the voice, Denies excessive sweating, Denies excessive thirst, Denies fatigue, Denies flushing, Denies heat intolerance, Denies high blood sugars, Denies increase in ring/shoe/hat size, Denies low blood sugars, Denies nocturia, Denies palpitations, Denies polydipsia, Denies polyphagia, Denies polyuria, Denies proptosis, Denies recent glucocorticoid use, Denies thyroid mass, Denies weight change Hematologic/Lymphatic: Reports as per HPI Allergic/Immunologic: Reports as per HPI Past Medical History Past Medical History: GERD/Reflux, Hyperlipidemia, Hypertension, Myocardial Infarction (SD), Osteoarthritis (OA) Additional Past Medical History / Comment(s): GOUT bilateral feet/knees, generalized mild arthritis. Last Myocardial Infarction Date:: 05/31/16 History of Any Multi-Drug Resistant Organisms: None Reported Past Surgical History: Heart Catheterization With Stent, Hernia Repair, Joint Replacement, Orthopedic Surgery Additional Past Surgical History / Comment(s): REPAIR OF HOLE IN HIS HEART at [facility] in 2012, R inguinal hernia repair, colonoscopies, bilateral total hip arthroplasties, R knee arthroscopy, R shoulder with pin. Past Anesthesia/Blood Transfusion Reactions: No Reported Reaction Date of Last Stent Placement:: 2016 Smoking Status: Never smoker - Past Family History Father Family Medical History: Congestive Heart Failure (CHF) Additional Family Medical History / Comment(s): Father is 94 yrs old. Mother Family Medical History: Myocardial Infarction (SD) Additional Family Medical History / Comment(s): Mother had a SD at the age of 91 yrs. She is 94 yrs old. Brother(s) History Unknown: Yes (Seasonal affective disorder) Sister(s) Family Medical History: No Reported History Daughter(s) Family Medical History: No Reported History Son(s) Family Medical History: No Reported History Medications and Allergies Home Medications Medication Instructions Recorded Confirmed Type Aspirin EC [Ecotrin Low Dose] 162 mg PO DAILY 05/31/16 02/05/20 History Losartan Potassium [Cozaar] 100 mg PO DAILY 05/31/16 02/05/20 History allopurinoL [Zyloprim] 300 mg PO DAILY 05/31/16 02/05/20 History Famotidine 40 mg PO DAILY 05/17/17 02/05/20 History Escitalopram [Lexapro] 10 mg PO DAILY 01/22/20 02/05/20 History Multivitamins, Thera [Multivitamin 1 tab PO DAILY 01/22/20 02/05/20 History (formulary)] Nitroglycerin Sl Tabs [Nitrostat] 0.4 mg SL Q5M PRN 02/05/20 02/05/20 History Allergies Allergy/AdvReac Type Severity Reaction Status Date / Time No Known Allergies Allergy Verified 02/05/20 14:48 Physical Exam Vitals: Vital Signs Temp Pulse Pulse Resp BP BP Pulse Ox 02/06/20 08:36 82 141/81 02/06/20 06:56 97.6 F 66 18 154/97 02/05/20 14:30 98.4 F 82 18 139/86 96 Intake and Output 02/05/20 02/06/20 02/06/20 22:59 06:59 14:59 Other: Weight 101.3 kg - Constitutional General appearance: cooperative, no acute distress, thin - EENT Eyes: anicteric sclerae, EOMI, PERRLA, dentition normal, normal appearance ENT: NA/AT, normal oropharynx - Neck Neck: normal ROM - Respiratory Respiratory: bilateral: CTA, negative: diminished, dullness, rales - Cardiovascular Rhythm: regular Heart sounds: normal: S1, S2 Abnormal Heart Sounds: no systolic murmur, no diastolic murmur, no rub, no S3 Gallop, no S4 Gallop, no click, no other - Gastrointestinal General gastrointestinal: normal bowel sounds, soft - Neurologic Neurologic: CNII-XII intact - Musculoskeletal Musculoskeletal: gait normal, strength equal bilaterally - Psychiatric Psychiatric: A&O x's 3, appropriate affect, intact judgment & insight Results CBC & Chem 7: 02/06/20 09:09 02/06/20 09:09 Labs: Abnormal Lab Results - Last 24 Hours (Table) 02/06/20 Range/Units 09:09 Glucose 188 H (74-99) mg/dL LDL Cholesterol, Calc 127 H (0-99) mg/dL Laboratory Results WBC 6.6 k/uL (3.8-10.6) 02/06/20 09:09 RBC 5.23 m/uL (4.30-5.90) 02/06/20 09:09 Hgb 15.5 gm/dL (13.0-17.5) 02/06/20 09:09 Hct 47.9 % (39.0-53.0) 02/06/20 09:09 MCV 91.7 fL (80.0-100.0) 02/06/20 09:09 MCH 29.7 pg (25.0-35.0) 02/06/20 09:09 MCHC 32.4 g/dL (31.0-37.0) 02/06/20 09:09 RDW 13.9 % (11.5-15.5) 02/06/20 09:09 Plt Count 240 k/uL (150-450) 02/06/20 09:09 Neutrophils % 75 % 02/06/20 09:09 Lymphocytes % 16 % 02/06/20 09:09 Monocytes % 5 % 02/06/20 09:09 Eosinophils % 3 % 02/06/20 09:09 Basophils % 1 % 02/06/20 09:09 Neutrophils # 5.0 k/uL (1.3-7.7) 02/06/20 09:09 Lymphocytes # 1.0 k/uL (1.0-4.8) 02/06/20 09:09 Monocytes # 0.3 k/uL (0-1.0) 02/06/20 09:09 Eosinophils # 0.2 k/uL (0-0.7) 02/06/20 09:09 Basophils # 0.0 k/uL (0-0.2) 02/06/20 09:09 Sodium 139 mmol/L (137-145) 02/06/20 09:09 Potassium 4.2 mmol/L (3.5-5.1) 02/06/20 09:09 Chloride 104 mmol/L (98-107) 02/06/20 09:09 Carbon Dioxide 25 mmol/L (22-30) 02/06/20 09:09 Anion Gap 10 mmol/L 02/06/20 09:09 BUN 15 mg/dL (9-20) 02/06/20 09:09 Creatinine 1.12 mg/dL (0.66-1.25) 02/06/20 09:09 Est GFR (CKD-EPI)AfAm 77 (>60 ml/min/1.73 sqM) 02/06/20 09:09 Est GFR (CKD-EPI)NonAf 67 (>60 ml/min/1.73 sqM) 02/06/20 09:09 Glucose 188 mg/dL (74-99) H 02/06/20 09:09 Plasma Lactic Acid Michael 1.2 mmol/L (0.7-2.0) 02/05/20 09:52 Calcium 9.2 mg/dL (8.4-10.2) 02/06/20 09:09 Magnesium 1.9 mg/dL (1.6-2.3) 02/05/20 09:52 Total Bilirubin 1.0 mg/dL (0.2-1.3) 02/06/20 09:09 AST 24 U/L (17-59) 02/06/20 09:09 ALT 22 U/L (4-49) 02/06/20 09:09 Alkaline Phosphatase 75 U/L (38-126) 02/06/20 09:09 Troponin I <0.012 ng/mL (0.000-0.034) 02/05/20 09:52 Total Protein 7.1 g/dL (6.3-8.2) 02/06/20 09:09 Albumin 4.2 g/dL (3.5-5.0) 02/06/20 09:09 Triglycerides 105 mg/dL (<150) 02/06/20 09:09 Cholesterol 197 mg/dL (<200) 02/06/20 09:09 LDL Cholesterol, Calc 127 mg/dL (0-99) H 02/06/20 09:09 HDL Cholesterol 49 mg/dL (40-60) 02/06/20 09:09 Amylase 34 U/L (30-110) 02/05/20 09:52 Lipase 259 U/L (23-300) 02/05/20 09:52 TSH 2.620 mIU/L (0.465-4.680) 02/06/20 09:09 Urine Color Yellow 02/05/20 09:52 Urine Appearance Clear (Clear) 02/05/20 09:52 Urine pH 5.5 (5.0-8.0) 02/05/20 09:52 Ur Specific [place] 1.018 (1.001-1.035) 02/05/20 09:52 Urine Protein Negative (Negative) 02/05/20 09:52 Urine Glucose (UA) Negative (Negative) 02/05/20 09:52 Urine Ketones Negative (Negative) 02/05/20 09:52 Urine Blood Negative (Negative) 02/05/20 09:52 Urine Nitrite Negative (Negative) 02/05/20 09:52 Urine Bilirubin Negative (Negative) 02/05/20 09:52 Urine Urobilinogen <2.0 mg/dL (<2.0) 02/05/20 09:52 Ur Leukocyte Esterase Negative (Negative) 02/05/20 09:52 Urine Opiates Screen Not Detected (NotDetected) 02/05/20 09:52 Ur Oxycodone Screen Not Detected (NotDetected) 02/05/20 09:52 Urine Methadone Screen Not Detected (NotDetected) 02/05/20 09:52 Ur Propoxyphene Screen Not Detected (NotDetected) 02/05/20 09:52 Ur Barbiturates Screen Not Detected (NotDetected) 02/05/20 09:52 U Tricyclic Antidepress Not Detected (NotDetected) 02/05/20 09:52 Ur Phencyclidine Scrn Not Detected (NotDetected) 02/05/20 09:52 Ur Amphetamines Screen Not Detected (NotDetected) 02/05/20 09:52 U Methamphetamines Scrn Not Detected (NotDetected) 02/05/20 09:52 U Benzodiazepines Scrn Not Detected (NotDetected) 02/05/20 09:52 Urine Cocaine Screen Not Detected (NotDetected) 02/05/20 09:52 U Marijuana (THC) Screen Not Detected (NotDetected) 02/05/20 09:52 Serum Alcohol <10 mg/dL 02/05/20 09:52 Assessment and Plan Plan: 1. Major depression with suicidal ideation, currently in the mental health receiving counseling group therapies, cognitive treatments coping skills, and titration of her antidepressants Lexapro urine drug screen failed to reveal any recreational drugs or chronic substance abuse, patient denies any other recreational drugs, trazodone would be started by psychiatry at 25 mg at bedtime, Lexapro is now currently at 15 mg daily, Ativan and Geodon given when necessary. EKG shows normal sinus rhythm, left anterior fascicular block, no QT prolongation 2. Hyperglycemia, possibly related to prediabetes against diabetes,, hemoglobin A1c, to be done, discussed diet. Blood sugars can be checked on a when necessary basis depending on hemoglobin A1c 3. CAD with prior stent May 2017 maintained on losartan 100 mg daily, patient is not on statin and not on beta ash 23. Hyperuricemia, on allopurinol 300 mg daily 4. BPH without lower tract symptomatology 5. Hyperlipidemia LDL of 127, not on statin, patient would need a secondary prevention program with statins, this could be initiated as an outpatient Lipitor 10 mg daily by his PCP GI prophylaxis with Pepcid Thank you Dr. Santiago in allowing us to participate in the care of his patient. We are going to follow him on a when necessary basis. Please do not hesitate to call should there be any future problems
[2020-02-06 18:06] LABS: Hemoglobin A1C 5.5 % (4.0-6.0)
[2020-02-06] MEDS ORDERED: traZODone HCL 50 MG TAB PO SCH (21:00)
[2020-02-07 05:44] VITALS: RESP 16
[2020-02-07] MEDS: ESCITALOPRAM 10 MG TAB PO SCH (08:05)
[2020-02-07] MEDS: MULTIVITAMINS, THERA 1 EACH TAB PO SCH (08:05)
[2020-02-07] MEDS: FAMOTIDINE 20 MG TAB PO SCH (08:05)
[2020-02-07] MEDS: LOSARTAN 50 MG TAB PO SCH (08:05)
[2020-02-07] MEDS: allopurinoL 300 MG TAB PO SCH (08:05)
[2020-02-07] MEDS: ASPIRIN 81 MG PO SCH (08:06)
--- NOTE | 2020-02-07 09:26 | P.PN ---
Progress Note - Text Progress Note Date: 02/07/20 Interval history: Patient was seen laying down in his bed this morning reading a book and was d irectable and agreeable to speak with securities underwriter. Patient appeared to have a mildly improved affect today however remains timid and a soft tone of voice. He states that he slept approximately 5-6 hours last night however this morning states that "I still feel tired from the medication" and has to have it reduced. He states that his mood has been mildly improving along with his anxiety. He claims that he has been going "every group". He states that he has been eating well on the unit and denied any other problems. He states that he was visited by his family yesterday which he states when well. At this time patient denies any suicidal or homicidal ideations intent or plan. Denies any Auditory or visual hallucinations. Patient denies any side effects from the medications and has been compliant with meds. Mental status exam: General Appearance: Patient appears to be stated age is alert, directable, polite, and attempts to cooperate. Patient appears to have fair hygiene and grooming. Behavior: Patient is seated without any agitated behavior. Polite Speech: Patient's speech is fluent and nonpressured. Soft tone of voice Mood/Affect: Patient reports their mood is improving mildly, affect is congruent and constricted. Suicidality/Homicidality: Patient denies having any homicidal ideation intent or plan. Denies any suicidal ideations intent or plan Perceptions: Patient denies any visual hallucinations and denies any auditory hallucinations Though content/process: There is no evidence of any delusional thought content and thought process is linear and goal-directed. [place], logical Memory and concentration: AOX3, grossly intact for the purposes of this session. Judgment and insight: poor, improving mildly Assessment/Plan: Continue with current diagnosis. Patient continues to meet criteria for inpatient psychiatric admission for symptom stabilization and safety.Patient will be maintained on current psychotropic medication regimen with the exception of decreasing the dose of trazodone to 12.5 mg daily at bedtime for insomnia/mood. Monitor for medication compliance and for any psychotropic medication side effects. Will continue to monitor ongoing response to treatment. Encouraged participation in milieu. Prior to discharge patient's guns should be verified that they are locked away or removed from the house by his .
[2020-02-07] MEDS: traZODone HCL 50 MG TAB PO SCH (20:22)
[2020-02-08] MEDS: ESCITALOPRAM 10 MG TAB PO SCH (07:59)
[2020-02-08] MEDS: LOSARTAN 50 MG TAB PO SCH (07:59)
[2020-02-08] MEDS: ASPIRIN 81 MG PO SCH (07:59)
[2020-02-08] MEDS: MULTIVITAMINS, THERA 1 EACH TAB PO SCH (07:59)
[2020-02-08] MEDS: FAMOTIDINE 20 MG TAB PO SCH (08:00)
[2020-02-08] MEDS: allopurinoL 300 MG TAB PO SCH (08:51)
--- NOTE | 2020-02-08 11:31 | P.PN ---
Subjective Progress Note Date: 02/08/20 Principal diagnosis: Major depression recurrent severe Subjective: The patient did not want to talk he just wanted to lie in his room with the lights off he says that Lexapro helped him when he took it in the past. However when asked what it did for him he could not clarify and became resentful when I asked him to. He did acknowledge to getting really angry at people because he doesn't like anybody anywhere. When asked him if the problem was that he got angry when there was nothing to be angry about or if he got too angry or if is just that everybody else really are terrible people. He had difficulty following that logic. Just became angry and got up and walked out. Objective patient has poor ADLs, no eye contact decrease psychomotor activity irritable denies it did not seem to be psychotic did not want to talk about suicidality or homicidality Vital signs: Temperature 97.6 blood pressure 104/64 and he runs low on O2 sat at about 94 labs: He had to hematology was negative, glucose tends to run a little high yesterday was okay at 109 but today was 188 is going to check and see if he had eaten but he did not want to talk. LDLs a bit elevated but no acute problems urine was negative and toxicology was negative Staff report that the patient is social with peers and that he slept well last night Group report he went to the 3:30 group yesterday was somewhat sleepy but compliant initiates talking with peers and staff energy appeared to be low tended to sit with his head down and eyes closed. He was redirectable but had to be encouraged to participate. He has been faithful in attending Assessment and plan: The patient is depressed but there is some Hiland II irritability. I do think Lexapro the good ideas, take some time to work will see if he tolerates that. Of course he would do better if he recognized that he himself has a problem with judgmentality and needs to get into some counseling to work on that. Plan no change in medication at this time Objective - Vital Signs Vital signs: Vital Signs Temp 97.6 F 02/08/20 06:35 Pulse 90 02/07/20 08:08 Resp 16 02/07/20 05:42 BP 104/64 02/08/20 06:35 Pulse Ox 94 L 02/08/20 06:35 Intake & Output 02/07/20 02/08/20 02/08/20 18:59 06:59 18:59 Weight 99.4 kg - Labs CBC & Chem 7: 02/06/20 09:09 02/06/20 09:09
[2020-02-08] MEDS: traZODone HCL 50 MG TAB PO SCH (19:57)
[2020-02-09 06:07] VITALS: TEMP 97.8
[2020-02-09] MEDS: MULTIVITAMINS, THERA 1 EACH TAB PO SCH (08:12)
[2020-02-09] MEDS: FAMOTIDINE 20 MG TAB PO SCH (08:12)
[2020-02-09] MEDS: ASPIRIN 81 MG PO SCH (08:12)
[2020-02-09] MEDS: LOSARTAN 50 MG TAB PO SCH (08:13)
[2020-02-09] MEDS: allopurinoL 300 MG TAB PO SCH (08:13)
[2020-02-09] MEDS: ESCITALOPRAM 10 MG TAB PO SCH (08:13)
[2020-02-09 09:27] VITALS: BP 140/77; PULSE 94
--- NOTE | 2020-02-09 11:21 | P.DS ---
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 He began to ruminate and all of these things and started having suicidal thoughts. He has a history of getting more depressed every winter and tends to take Lexapro this is a little early for him to be depressed. He restarted the Lexapro at 10 about 45 weeks ago and feels it just hasn't kicked in he called his and talked about suicidal thoughts. He had thoughts of wanting to cut himself or shoot himself with his gun.(The family has been contacted and all guns have been removed) The patient has been attending groups staying the whole time participating in the groups he is verbal with patients and staff although minimal interaction with peers he is attentive his affect is flat. Throughout his stay is denied suicidal ideas or homicidal ideas. 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 Mental status exam: He is alert oriented to person place time and circumstances cooperative good eye contact good self-care gained station normal psychomotor activity is down somewhat affect is flat abstract understanding and reasoning is good short-term memory is good. No signs of psychosis no irritability no aggression no tearfulness. Diagnoses major depression recurrent severe. Seasonal affect of disorder Plan continue and increase in Lexapro at 15 and add Wellbutrin to it. Lexapro will help him not go round and round on problem so much but it will not help with energy and motivation are enjoyment that is what Wellbutrin does. Wellbutrin is indicated for seasonal affective disorder will not make him drugged her fat or sleepy he is not addicting. I went over the pros and cons told him to talk to his outpatient doctor about it and he said I'd like to start it now it makes sense. Some going to give him Wellbutrin XL 150s take 1 a day for a week and then increase it to 2. I told him that if he has any problems between now and his follow-up appointment with his doctor he can call me in asked them to page me at the hospital. He has no history of seizures or bulimia and I see evidence of low motivation and drive in speed of focus and analysis. I reviewed expected course and also that he needs to work on improving his support systems improving his sense of purpose improving his obsessing of life stress and working on diet exercise and sleep. He is to set up an hour every week where he sits down with his and fills her in and how he is doing. He is to get into counseling is suggested by his relative and he is going to keep a journal every night of things he wants to talk to the counselor about We are going to add Wellbutrin and the Lexapro has been increased and he is going to understand that that we'll take a couple of weeks to work Assessment: Assessment patient is doing a lot better than when he came in he has worked through the stresses in his life and how to handle them more effectively turning over some of the responsibility to his partner's and communicating better with his and focusing on the positives in his life and taking more time for himself. He is also willing to get into counseling and has a family member who is recommending a good counselor and he is committed to getting into that. He is denying any suicidality or homicidality at this point and is willing to take medications that will be helpful so I believe that he is safe for discharge Health Concerns: The patient is somewhat elevated blood sugar and so he will need to follow through with his family doctor and get an A1c The patient has chronic issues with coronary artery disease had a stent put in in May 2017 and is on losartan 100 mg a day no statin her beta ash that's an issue for him and his family doctor. 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 Hyperlipidemia his LDL is 127 and it's recommended he talk to his PCP about possibly starting Lipitor No acute problems well in the hospital Pertinent Studies: Labs: On his glucose was 109 but on 88 was 188 hematology was normal, LDL 127 urine was normal and toxicology negative Procedures: None Patient Condition at Discharge: Fair Plan - Discharge Summary New Discharge Prescriptions: No Action Losartan Potassium [Cozaar] 100 mg PO DAILY Aspirin EC [Ecotrin Low Dose] 162 mg PO DAILY allopurinoL [Zyloprim] 300 mg PO DAILY Famotidine 40 mg PO DAILY Multivitamins, Thera [Multivitamin (formulary)] 1 tab PO DAILY Escitalopram [Lexapro] 10 mg PO DAILY Nitroglycerin Sl Tabs [Nitrostat] 0.4 mg SL Q5M PRN PRN Reason: Chest Pain Discharge Medication List Aspirin EC [Ecotrin Low Dose] 162 mg PO DAILY 05/31/16 [History] Losartan Potassium [Cozaar] 100 mg PO DAILY 05/31/16 [History] allopurinoL [Zyloprim] 300 mg PO DAILY 05/31/16 [History] Famotidine 40 mg PO DAILY 05/17/17 [History] Escitalopram [Lexapro] 10 mg PO DAILY 01/22/20 [History] Multivitamins, Thera [Multivitamin (formulary)] 1 tab PO DAILY 01/22/20 [History] Nitroglycerin Sl Tabs [Nitrostat] 0.4 mg SL Q5M PRN 02/05/20 [History] Follow up Appointment(s)/Referral(s): Josue Schneider MD [Primary Care Provider] - 1-2 days Activity/Diet/Wound Care/Special Instructions: Activity and diet as tolerated. Avoid the use of street drugs and alcohol. Take all medications as prescribed. When you are in need of refills on your medications please contact your medical provider and/or outpatient psychiatrist to have this done. Please go to scheduled outpatient appointment for aftercare treatment. If symptoms return or become worse, call the crisis line at and/or go to the nearest emergency room for evaluation.
[2020-02-10] MEDS ORDERED: buPROPion XL 150 MG TAB.ER.24H PO SCH (09:00)
== END 2020-02-09 13:55 | disposition home or self-care (01) | DRG 885 ==
LOC: EC 09:10 → 3MHU 13:45
PROVIDERS: ADMIT Psychiatry & Neurology Psychiatry; ATTEND Psychiatry & Neurology Psychiatry
DX: F33.2 Major depressive disorder, recurrent severe without psychotic features (principal); R45.851 Suicidal ideations; G47.00 Insomnia, unspecified; F41.9 Anxiety disorder, unspecified; E78.5 Hyperlipidemia, unspecified; I10 Essential (primary) hypertension; I25.10 Atherosclerotic heart disease of native coronary artery without angina pectoris; I25.2 Old myocardial infarction; N40.0 Benign prostatic hyperplasia without lower urinary tract symptoms; I44.4 Left anterior fascicular block; S61.519A Laceration without foreign body of unspecified wrist, initial encounter; X78.9XXA Intentional self-harm by unspecified sharp object, initial encounter; Z79.82 Long term (current) use of aspirin; Z79.899 Other long term (current) drug therapy; Z82.49 Family history of ischemic heart disease and other diseases of the circulatory system; Z96.643 Presence of artificial hip joint, bilateral; R73.9 Hyperglycemia, unspecified; M10.9 Gout, unspecified; M19.90 Unspecified osteoarthritis, unspecified site; Z95.5 Presence of coronary angioplasty implant and graft; K21.9 Gastro-esophageal reflux disease without esophagitis
CPT/HCPCS: 36415; 70450; 80053; 80061; 80306; 80320; 81003; 82150; 83036; 83605; 83690; 83735; 84443; 84484; 85025; 90471; 90715; 93005; 96361; 96374; 99285